=== PATIENT | female | born 1980 | race Caucasian/White ===

== ENCOUNTER 2016-08-09 08:23 | Emergency (ER) | payer BC ==
[2016-08-09 08:40] VITALS: BP 127/85
--- NOTE | 2016-08-09 08:58 | UC ---
Throat Pain/Nasal Vasiliy HPI - HPI Summary HPI Summary: complaint of cough and nasal congestion that started 1 week ago for the last 2 days her throat has been painful coughing up purulent fluid since yesterday bilateral ear pain pressure in her forehead and behind her eyes intermittent fever in the evenings of 100-102 N/V/D intermittent for the last 5 days taking tylenol and advil for pain with minimal relief - History of Current Complaint Chief Complaint: UCRespiratory Stated Complaint: SORE THROAT Time Seen by Provider: 08/09/16 08:46 Hx Obtained From: Patient Hx Last Menstrual Period: 07/14/16 - Allergies/Home Medications Allergies/Adverse Reactions: Allergies Allergy/AdvReac Type Severity Reaction Status Date / Time Aspirin Allergy Severe anaphylaxis Verified 11/30/15 13:36 Cephalosporins Allergy Severe anaphylaxis Verified 11/30/15 13:36 Iodinated Contrast Media Allergy Severe ANAPHYLAXIS Verified 11/30/15 13:36 [CONTRAST DYE] Iodine Allergy Severe THROAT Verified 11/30/15 13:36 SWELLING Latex Allergy Severe anaphylaxis Verified 11/30/15 13:36 Midazolam [From Versed] Allergy Severe SUICIDAL Verified 11/30/15 13:36 Morphine Allergy Severe anaphylaxis Verified 11/30/15 13:36 Penicillins [PCN] Allergy Severe anaphylaxis Verified 11/30/15 13:36 Promethazine [From Phenergan] Allergy Severe hallucintio Verified 11/30/15 13:36 ns Sulfa Drugs Allergy Severe anaphylaxis Verified 11/30/15 13:36 Tetracycline Allergy Severe anaphylaxis Verified 11/30/15 13:36 Ibuprofen Allergy Intermediate Rash Verified 11/30/15 13:36 Gluten Meal Allergy Rash Verified 11/30/15 13:36 PMH/Surg Hx/FS Hx/Imm Hx Previously Healthy: Yes Endocrine History Of: Reports: Thyroid Disease - 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." Denies: Diabetes, Hyperthyroidism, Hypothyroidism, Dyslipidemia Cardiovascular History Of: Reports: Hypertension - WITH Denies: Cardiac Disorders, Pacemaker/ICD, Myocardial Infarction, Congestive Heart Failure, Atrial Fibrillation, Deep Vein Thrombosis, Bleeding Disorders Respiratory History Of: Reports: Asthma - A CHILD Denies: COPD, Bronchitis, Pneumonia, Pulmonary Embolism GI/ History Of: Denies: Gastroesophageal Reflux, Ulcer, Gastrointestinal Bleed, Gall Bladder Disease, Kidney Stones, Diverticulitis, Renal Disease, Urosepsis Neurological History Of: Denies: TIA, CVA, Dementia, Seizures, Migraine Psychological History Of: Denies: Anxiety, Depression, Bipolar Disorder, Schizophrenia, Post Traumatic Stress Disorder Cancer History Of: Denies: Lung Cancer, Colorectal Cancer, Breast Cancer, Prostate Cancer, Cervical Cancer Other History Of: Negative For: HIV, Hepatitis B, Hepatitis C - Surgical History Surgical History: Yes Surgery Procedure, Year, and Place: RUPTURED RIGHT ACHILLES TENDON REPAIR AT AGE 16, CHOLECYSTECTOMY, PARTIAL LIVER LOBECTOMY 2002, MULTIPLE LAPAROSCOPIC exploratory. appendectomy. tonsillectomy. ear tubes as child - Family History Known Family History: Positive: Cardiac Disease, Hypertension, Diabetes - Social History Occupation: Employed Full-time Lives: With Family Alcohol Use: Occasionally Substance Use Type: None Smoking Status (MU): Never Smoked Tobacco - Immunization History Most Recent Tetanus Shot: does not recall Review of Systems Constitutional: Fever Skin: Negative Eyes: Negative ENT: Sore Throat, Ear Ache, Nasal Discharge Respiratory: Cough Cardiovascular: Negative Gastrointestinal: Negative Genitourinary: Negative Motor: Negative Neurovascular: Negative Musculoskeletal: Negative Neurological: Headache Psychological: Negative All Other Systems Reviewed And Are Negative: Yes Physical Exam Triage Information Reviewed: Yes Appearance: Well-Nourished, Pain Distress Vital Signs: Initial Vital Signs Temp 97.7 F 08/09/16 08:32 Pulse 116 08/09/16 08:32 Resp 16 08/09/16 08:32 BP 127/85 08/09/16 08:32 Pulse Ox 99 08/09/16 08:32 Vital Signs Reviewed: Yes Eyes: Positive: Conjunctiva Clear ENT: Positive: Pharyngeal erythema, Nasal congestion, Nasal drainage, TMs normal Dental: Positive: Cervical Lymphadenopathy Respiratory: Positive: Lungs clear, Normal breath sounds, No respiratory distress Cardiovascular: Positive: RRR, No Murmur, Pulses Normal Abdomen Description: Positive: Nontender, Soft Bowel Sounds: Positive: Present Musculoskeletal: Positive: No Edema Neurological: Positive: Alert Psychological Exam: Normal Skin Exam: Normal Throat Pain/Nasal Course/Dx - Differential Dx/Diagnosis Provider Diagnoses: strep pharyngitis Discharge - Discharge Plan Condition: Stable Disposition: HOME Prescriptions: Clarithromycin TAB* [Biaxin 250 MG TAB*] 250 mg PO BID #20 tab Guaifenesin-Codeine [Cheratussin AC] 10 syp PO TID #180 syp MDD 30 Patient Education Materials: Strep Throat (ED) Referrals: No Primary Care Phys,NOPCP [Primary Care Provider] - [facility] [Outside] Additional Instructions: STREPTOCOCCAL PHARYNGITIS (Strep Throat) What is Strep Throat? Strep throat is an infection of the throat and/or tonsils caused by Streptococcus bacteria. Strep throat is contagious and can be passed from one person to another through coughing and sneezing. Infections that are caused by bacteria require antibiotics to be cured. You remain contagious until you have taken antibiotics for at least 24 hours. Symptoms Might Include: Pain in the throat area Swelling of the glands in the neck Pain with swallowing Fever Fatigue Ear pain White spots on your tonsils (caused by pus) Treatment Recommendations: An antibiotic may have been prescribed. The antibiotic should be taken until it is completely gone, even if you feel better. If you stop the antibiotic early , you may not cure the infection completely. Gargle with warm saltwater (place 1 tsp. of salt in a large glass of warm water ) every 3 to 4 hours. Take acetaminophen (Tylenol, Tempra) for pain and fever. Drink lots of fluids. Do not smoke. Use throat lozenges (Cepostat, [place], etc.) or suck on hard candy for temporary relief of the pain of swallowing. Dispose of used tissues immediately. Cover your mouth when coughing or sneezing. Wash hands frequently. Call Your Doctor or Return Here IF: Your symptoms do not improve within 2 days or you become worse. You have a fever over 101.0 F orally. You are unable to swallow liquids or saliva. You are drooling. You develop trouble breathing. You develop a rash. You develop a stiff neck. You develop pain in your chest. You develop any symptoms that are new or that concern you our blood pressure is pre-hypertensive reading. Please contact your primary care provider within 1 day -4 weeks for further evaluation
== END 2016-08-09 09:19 | disposition home or self-care (01) ==
LOC: UCEAST 08:23
DX: J02.0 Streptococcal pharyngitis (principal); E04.9 Nontoxic goiter, unspecified; Z90.49 Acquired absence of other specified parts of digestive tract; Z88.5 Allergy status to narcotic agent; Z88.0 Allergy status to penicillin; Z88.2 Allergy status to sulfonamides; Z88.6 Allergy status to analgesic agent; Z88.1 Allergy status to other antibiotic agents; Z91.041 Radiographic dye allergy status
CPT/HCPCS: 87651; 99212; G0463

== ENCOUNTER 2017-04-11 08:22 | Emergency (ER) | payer BC ==
[2017-04-11 08:32] VITALS: BP 147/102
--- NOTE | 2017-04-11 08:37 | UC ---
Respiratory Complaint HPI - HPI Summary HPI Summary: 36 year old female with multiple abdominal surgeries presents with complains of severe abdominal pain. I will send her to the er. - History of Current Complaint Chief Complaint: UCAbdominalPain Stated Complaint: VOMITING, COUGH Time Seen by Provider: 04/11/17 08:37 Hx Obtained From: Patient Hx Last Menstrual Period: 04/11/17 Onset/Duration: Sudden Onset Severity Initially: Moderate Severity Currently: Moderate Pain Scale Used: 0-10 Numeric - 7 Associated Signs And Symptoms: Positive: Negative - Allergies/Home Medications Allergies/Adverse Reactions: Allergies Allergy/AdvReac Type Severity Reaction Status Date / Time Aspirin Allergy Severe anaphylaxis Verified 04/11/17 08:33 Cephalosporins Allergy Severe anaphylaxis Verified 04/11/17 08:33 Iodinated Contrast Media Allergy Severe ANAPHYLAXIS Verified 04/11/17 08:33 [CONTRAST DYE] Iodine Allergy Severe THROAT Verified 04/11/17 08:33 SWELLING Latex Allergy Severe anaphylaxis Verified 04/11/17 08:33 Midazolam [From Versed] Allergy Severe SUICIDAL Verified 04/11/17 08:33 Morphine Allergy Severe anaphylaxis Verified 04/11/17 08:33 Penicillins [PCN] Allergy Severe anaphylaxis Verified 04/11/17 08:33 Promethazine [From Phenergan] Allergy Severe hallucintio Verified 04/11/17 08:33 ns Sulfa Drugs Allergy Severe anaphylaxis Verified 04/11/17 08:33 Tetracycline Allergy Severe anaphylaxis Verified 04/11/17 08:33 Gluten Meal Allergy Rash Verified 04/11/17 08:33 Naproxen [From Aleve] Allergy Rash Verified 04/11/17 08:33 PMH/Surg Hx/FS Hx/Imm Hx Previously Healthy: Yes Other History Of: Negative For: HIV, Hepatitis B, Hepatitis C - Surgical History Surgical History: Yes Surgery Procedure, Year, and Place: RUPTURED RIGHT ACHILLES TENDON REPAIR AT AGE 16, CHOLECYSTECTOMY, PARTIAL LIVER LOBECTOMY 2002, MULTIPLE LAPAROSCOPIC exploratory. appendectomy. tonsillectomy. ear tubes as child - Family History Known Family History: Positive: Cardiac Disease, Hypertension, Diabetes - Social History Alcohol Use: Weekly Alcohol Amount: 2-3 drinks weekly Substance Use Type: None Smoking Status (MU): Never Smoked Tobacco - Immunization History Most Recent Influenza Vaccination: NOT UTD Most Recent Tetanus Shot: does not recall Review of Systems Constitutional: Negative Skin: Negative Eyes: Negative ENT: Negative Respiratory: Negative Cardiovascular: Negative Gastrointestinal: Abdominal Pain, Nausea Genitourinary: Negative Motor: Negative Neurovascular: Negative Musculoskeletal: Negative Neurological: Negative Psychological: Negative All Other Systems Reviewed And Are Negative: Yes Physical Exam Triage Information Reviewed: Yes Vital Signs: Initial Vital Signs Temp 35.6 C 04/11/17 08:26 Pulse 126 04/11/17 08:26 Resp 18 04/11/17 08:26 BP 147/102 04/11/17 08:26 Pulse Ox 99 04/11/17 08:26 Vital Signs Reviewed: Yes Eye Exam: Normal ENT Exam: Normal Dental Exam: Normal Neck exam: Normal Neck: Positive: 1 Respiratory Exam: Normal Cardiovascular Exam: Normal Abdomen Description: Positive: Other: - diffuse abdominal pain Musculoskeletal Exam: Normal Neurological Exam: Normal Psychological Exam: Normal Skin Exam: Normal UC Diagnostic Evaluation - Laboratory O2 Sat by Pulse Oximetry: 99 Respiratory Course/Dx - Differential Dx/Diagnosis Provider Diagnoses: diffuse abdominal pain Discharge - Discharge Plan Condition: Stable Disposition: OTHER Discharge Disposition Comment: patient suggested to go to the er Patient Education Materials: Acute Abdominal Pain (ED) Referrals: No Primary Care Phys,NOPCP [Primary Care Provider] - Additional Instructions: patient suggested to go to the er for severe abdominal pain/vomiting
== END 2017-04-11 08:45 ==
LOC: UCEAST 08:22
DX: R10.84 Generalized abdominal pain (principal); R11.10 Vomiting, unspecified; R05 Cough; Z88.6 Allergy status to analgesic agent; Z88.1 Allergy status to other antibiotic agents; Z88.5 Allergy status to narcotic agent; Z88.0 Allergy status to penicillin; Z88.2 Allergy status to sulfonamides; Z88.8 Allergy status to other drugs, medicaments and biological substances; Z91.041 Radiographic dye allergy status; Z91.040 Latex allergy status; Z90.49 Acquired absence of other specified parts of digestive tract; Z98.890 Other specified postprocedural states
CPT/HCPCS: 99212; G0463

== ENCOUNTER 2017-04-11 09:18 | Emergency (ER) | payer BC ==
[2017-04-11] MEDS ORDERED: Albuterol/Ipratropium NEB.SOL* Albuterol 2.5 MG/Ipratropium 0.5 MG 3 ML INH ONE ×2 (09:55→10:45)
[2017-04-11] MEDS ORDERED: Ondansetron INJ* 2 MG/ML VIAL IV ONE ×2 (09:58→12:49)
[2017-04-11] MEDS ORDERED: NS 0.9% 1000 ML* 2,000 ML IV ONE (09:58)
--- NOTE | 2017-04-11 10:04 | ED ---
Nausea/Vomiting/Diarrhea HPI - HPI Summary HPI Summary: 36 female presents to ED from [facility] with complaints of nausea, vomiting, fever, cough and trouble breathing. Patient states she has been vomiting multiple times a day for the past couple of days, began Wednesday04/07/17 and has been ongoing since. Has been drinking fluids and trying to stay hydrated. States she has been having body aches, and feels itchy and weak. Patient denies blood in vomit and stool. Denies urinary and genitalia symptoms. States has some diffuse intermittent upper epigastric and left abdominal pain that is sharp and burning. States she has been vomiting profusely and does not know if she maybe aspirated as she is now experiencing a cough, wheezing and having SOB. Does have history of aspiration pneumonia. States fever was 103 yesterday, was able to take tylenol which helped her. Is currently nauseous. No other known medical problems, no medications. Currently menstruating. Did have cholecystectomy and appendectomy in the past. Also had some of liver removed after complications from cholecystectomy. Has not traveled, denies cigarette use, no OCP. No recent take out food. - History of Current Complaint Chief Complaint: EDAbdPain Stated Complaint: VOMITTING/ABD PAIN Time Seen by Provider: 04/11/17 09:27 Hx Obtained From: Patient Hx Last Menstrual Period: 04/11/17 ?: No Timing: Intermittent Episodes Lasting: Severity Initially: Mild Severity Currently: Moderate Pain Intensity: 8 Pain Scale Used: 0-10 Numeric Location: Discrete At: LUQ, Epigastric Character: Sharp, Burning, Cramping Aggravating Factor(s): Food Alleviating Factor(s): Nothing Nausea/Vomiting Presence: Nauseated, Vomiting Vomiting Frequency: Every 3-4 hours Nausea/Vomiting Duration: 3-7 days - 5 Vomiting Characteristics: Retching, Bilious Diarrhea Presence: Yes Diarrhea Frequency: Daily Diarrhea Duration: 3-7 days Diarrhea Characteristics: Watery - Allergies/Home Medications Allergies/Adverse Reactions: Allergies Allergy/AdvReac Type Severity Reaction Status Date / Time Aspirin Allergy Severe anaphylaxis Verified 04/11/17 08:33 Cephalosporins Allergy Severe anaphylaxis Verified 04/11/17 08:33 Iodinated Contrast Media Allergy Severe ANAPHYLAXIS Verified 04/11/17 08:33 [CONTRAST DYE] Iodine Allergy Severe THROAT Verified 04/11/17 08:33 SWELLING Latex Allergy Severe anaphylaxis Verified 04/11/17 08:33 Midazolam [From Versed] Allergy Severe SUICIDAL Verified 04/11/17 08:33 Morphine Allergy Severe anaphylaxis Verified 04/11/17 08:33 Penicillins [PCN] Allergy Severe anaphylaxis Verified 04/11/17 08:33 Promethazine [From Phenergan] Allergy Severe hallucintio Verified 04/11/17 08:33 ns Sulfa Drugs Allergy Severe anaphylaxis Verified 04/11/17 08:33 Tetracycline Allergy Severe anaphylaxis Verified 04/11/17 08:33 Gluten Meal Allergy Rash Verified 04/11/17 08:33 Naproxen [From Aleve] Allergy Rash Verified 04/11/17 08:33 PMH/Surg Hx/FS Hx/Imm Hx Endocrine/Hematology History: Reports: Hx Thyroid Disease - 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." Denies: Hx Diabetes Cardiovascular History: Reports: Hx Hypertension - WITH Denies: Hx Congestive Heart Failure, Hx Deep Vein Thrombosis, Hx Myocardial Infarction, Hx Pacemaker/ICD Respiratory History: Reports: Hx Asthma - A CHILD Denies: Hx Chronic Obstructive Pulmonary Disease (COPD), Hx Lung Cancer, Hx Pneumonia, Hx Pulmonary Embolism GI History: Denies: Hx Gall Bladder Disease, Hx Gastrointestinal Bleed, Hx Ulcer, Hx Urosepsis History: Reports: Other Problems/Disorders - hx Hep A & Liver Problems Denies: Hx Kidney Stones, Hx Renal Disease Neurological History: Denies: Hx Dementia, Hx Migraine, Hx Seizures, Hx Transient Ischemic Attacks (TIA) Psychiatric History: Denies: Hx Anxiety, Hx Depression, Hx Schizophrenia, Hx Bipolar Disorder - Surgical History Surgery Procedure, Year, and Place: RUPTURED RIGHT ACHILLES TENDON REPAIR AT AGE 16, CHOLECYSTECTOMY, PARTIAL LIVER LOBECTOMY 2002, MULTIPLE LAPAROSCOPIC exploratory. appendectomy. tonsillectomy. 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, Hx Shingles - in past year, History Other Infectious Disease - "RAT BITE FEVER" Denies: Hx Clostridium Difficile, Hx Human Immunodeficiency Virus (HIV), Hx of Known/Suspected MRSA, Hx Tuberculosis, Hx Known/Suspected VRE, Hx Known/ Suspected VRSA, Traveled Outside the [place] in Last 30 Days - Family History Known Family History: Positive: Cardiac Disease, Hypertension, Diabetes - Social History Alcohol Use: Weekly Alcohol Amount: 3 drinks weekly Substance Use Type: Reports: None Smoking Status (MU): Former Smoker Review of Systems Positive: Fever, Chills, Fatigue Eyes: Negative Positive: Sore Throat - from vomiting Positive: Chest Pain - "from vomiting, burning acid reflux like" Positive: Shortness Of Breath, Cough Positive: Abdominal Pain, Vomiting, Diarrhea, Nausea Genitourinary: Negative Skin: Other - "feels itchy" Positive: Weakness All Other Systems Reviewed And Are Negative: Yes Physical Exam Triage Information Reviewed: Yes Vital Signs On Initial Exam: Initial Vitals Temp Pulse Resp BP Pulse Ox 97.1 F 118 17 141/92 98 04/11/17 09:19 04/11/17 09:19 04/11/17 09:19 04/11/17 09:19 04/11/17 09:19 tachycardia noted Vital Signs Reviewed: Yes Appearance: Positive: Well-Appearing, No Pain Distress, Well-Nourished Skin: Positive: Warm, Skin Color Reflects Adequate Perfusion, Dry. Negative: Cold, Numb, Cyanosis @, Pale, Erythema @ Head/Face: Positive: Normal Head/Face Inspection. Negative: Scalp Eyes: Positive: EOMI, SONAM, Conjunctiva Clear Neck: Positive: Supple, Nontender, No Lymphadenopathy Respiratory/Lung Sounds: Positive: Clear to Auscultation, Breath Sounds Present , Rhonchi - b/l, Wheezes - diffuse. Negative: Stridor, Tracheal Deviation, Unable to speak in full sentences, Fatigue Cardiovascular: Positive: Normal, RRR, Pulses are Symmetrical in both Upper and Lower Extremities, Tachycardia Abdomen Description: Positive: No Organomegaly, Soft, Other: - pain with palpation diffusely RLQ and LUQ epigastric area. Negative: Bruit, CVA Tenderness (R), CVA Tenderness (L), Distended, Guarding, McBurney's Point Tenderness, Peritoneal Signs, Pulsatile Mass Bowel Sounds: Positive: Present, Hypoactive Pelvic Exam: Positive: other - deferred Musculoskeletal: Positive: Normal, Strength/ROM Intact. Negative: Pain @ Neurological: Positive: Normal, Sensory/Motor Intact, Alert, Oriented to Person Place, Time, CN Intact II-III, Reflexes Intact, NV Bundle Intact Distally, Normal Gait - Conway Coma Scale Coma Scale Total: 15 Diagnostics - Vital Signs Vital Signs Temp Pulse Resp BP Pulse Ox 04/11/17 09:47 116 98 04/11/17 09:19 97.1 F 118 17 141/92 98 - Laboratory Result Diagrams: 04/11/17 10:15 04/11/17 10:15 Lab Statement: Any lab studies that have been ordered have been reviewed, and results considered in the medical decision making process. - Radiology chest Xray Interpretation: No Acute Changes - No radiographic evidence of acute cardiopulmonary disease. Radiology Interpretation Completed By: Radiologist - CT abd/pelvis CT Interpretation: No Acute Changes - 1. There are top normal loops of proximal small bowel exhibiting air-fluid levels which could be seen in the setting of partial small bowel obstruction. Evaluation of the gastrointestinal tract is limited by the absence of oral contrast. 2. A 3.6 cm fluid density structure in the left adnexa is most consistent with a dominant follicle in a woman of this age. The right ovary is mildly enlarged as well. If the patient is experiencing any gynecologic specific symptoms superior characterization can be made with transvaginal pelvic ultrasound. 3. There are additional chronic and postsurgical changes described in the body the report. CT Interpretation Completed By: Radiologist - and myself and Dr Taylor - EKG EKG Cardiac Rate: NL EKG Rhythm: Sinus Tachycardia ST Segment: Normal Ectopy: None EKG Interpretation: sinus tachycardia at 113, no stemi EKG Comparison: No Significant Change Re-Evaluation - Re-Evaluation First Eval Re-Evaluation Time: 12:00 Change: Improved - had some relief with zofran and toradol Second Eval Re-Evaluation Time: 15:00 Change: Improved - feeling better had consult with Vicky Ding and hospitalist service. Decided to be d/c updated on all labs and imaging results Naus/Vom/Diarrhea Course/Dx - Course Course Of Treatment: chest xray obtained to rule out pneumonia, given zofran and fluids for nasuea and dehydration. labs obtained and had significantly increased liver enzymes. hepatitis panel was obtained penidng results. Ct abd/ pelvis obtained without contrast due to patient's previous allergies to contrast , possible slight/partial bowel obstruction not very impressive, patient still moving bowels. Spoke with Dr Taylor and Dr Steen about results who stated this was a non surgical finding and close follow up would be sufficient unless worsening signs and symptoms, no further imaging required at this time. Due to liver enzymes, elevated Hgb and elevated platelets hospitalist Dr Pearson was consulted. Patient was consulted by hospitalist service and decided that going home with outpatient treatment was the decision. To send home on levofloxacin, zofran and oxycodone to help symptoms. Levaquin due to patients concern for aspiration pneumonia, with history and PE findings of wheezing/rhonci on exam. Given duoneb x2 for wheezing had relief. influenza and mono obtained and negative. vitals stable other than slight tachycardia that improved. Given fluids. EKG obtained and normal. Will be treated outpatient pending hepatitis panel and close follow up with repeat labs with PCP. Appointment made at hospitalist outpatient office for this week. Aware of worsening signs and symptoms. Patient is very aware as her significant PMHX. - Differential Dx/Diagnosis Differential Diagnoses - Female: Other - gastroenteritis, abdominal pain, nausea , vomiting, hepatitis, pneumonia, bronchitis, viral illness Provider Diagnoses: elevated liver enzymes, nausea/vomiting/diarrhea, wheezing, upper abdominal pain Condition At Discharge: Improved - Physician Notification/Consults Discussed Case/Management/Disposition Of Patient With: Dr Taylor, Dr Steen, Dr Pearson, Vicky Ding Time Discussed With Above Provider: 13:00 Instructed by Provider To: Have Pt Call For Appt. - appt set up for outpatient follow up and repeat labs Discharge - Discharge Plan Condition: Stable Disposition: HOME Prescriptions: Levofloxacin TAB* [Levaquin 500 Tab*] 500 mg PO DAILY #20 tab Ondansetron TAB* [Zofran 4 MG Tab*] 4 mg PO Q6H PRN #15 tab PRN Reason: Nausea oxyCODONE TAB* [Roxycodone TAB 5 mg*] 5 mg PO Q6H PRN #14 tab MDD 2 PRN Reason: Pain Patient Education Materials: Levofloxacin (By mouth), Acute Bronchitis (ED), Abdominal Pain (ED) Referrals: No Primary Care Phys,NOPCP [Primary Care Provider] - Additional Instructions: Take prescribed medication as directed. Increase fluid intake. Rest. Any new or worsening symptoms please return as thoroughly discussed. Follow up next week with outpatient PCP you have an appointment already set up with.
[2017-04-11 10:35] LABS: ABS Basophils 0.2 10^3/ul (0-0.2); ABS Eosinophils 0.8 10^3/ul (0-0.6); ABS Lymphocytes 2.4 10^3/ul (1.0-4.8); ABS Monocytes 1.2 10^3/ul (0-0.8); ABS Neutrophils 9.6 10^3/ul (1.5-7.7); ABS Nucleated RBC 0 10^3/ul; Eosinophil % 5.6 % (0-6); Hematocrit 47 % (35-47); Hemoglobin 16.6 g/dl (12.0-16.0); Mean Corpuscular HGB Conc 35 g/dl (31-36); Mean Corpuscular Hemoglobin 31 pg (27-31); Mean Corpuscular Volume 89 fL (80-97); Mean Platelet Volume 7 um3 (7.4-10.4); Nucleated Red Blood Cells % 0; Platelet Count 467 10^3/ul (150-450); Red Blood Count 5.31 10^6/ul (4.0-5.4); Red Cell Distribution Width 13 % (10.5-15); White Blood Count 14.1 10^3/ul (3.5-10.8)
[2017-04-11] MEDS ORDERED: Ketorolac INJ* 30 MG/ML 1 ML VIAL IV PUSH ONE (10:38)
[2017-04-11 10:39] LABS: Urine Appearance Clear; Urine Blood 2+ (Negative); Urine Color Yellow; Urine Ketones Negative (Negative); Urine Protein Negative (Negative); Urine Specific Gravity 1.005 (1.010-1.030); Urine Urobilinogen Negative (Negative)
[2017-04-11 10:59] LABS: EGFR Non-African American 105.6 (>60)
--- NOTE | 2017-04-11 11:08 | RAD ---
INDICATION: Vomiting and abdominal pain COMPARISON: Similar chest x-ray dated April 30, 2010 TECHNIQUE: PA and lateral views of the chest were obtained. FINDINGS: The heart and mediastinum are normal in size and contour. The lungs are grossly clear. There is no evidence of large pleural effusion. Visualized bones are normal for the patient's age. There is no radiographic evidence of free air beneath the diaphragm IMPRESSION: No radiographic evidence of acute cardiopulmonary disease.
--- NOTE | 2017-04-11 12:02 | RAD ---
CLINICAL HISTORY: Abdominal pain, nausea, vomiting and "having full sensation in abdomen after she eats". Relevant surgical history includes cholecystectomy, partial liver lobectomy, appendectomy and multiple laparoscopic exploratory surgeries. COMPARISON: None TECHNIQUE: Noncontrast CT examination of the abdomen and pelvis from the lung bases through the initial tuberosities. FINDINGS: VISUALIZED LUNG BASES: The visualized lung bases are grossly clear. There is no pleural effusion. ABDOMEN AND PELVIS: Evaluation of the solid organs and vasculature is limited without intravenous contrast. The liver, spleen and pancreas are grossly normal in appearance. The gallbladder is surgically absent with clips in the gallbladder fossa. At the medial limb of the right adrenal gland there is a 1.5 cm low-attenuation nodule. At the apex of the left adrenal gland there is a 2.1 cm low-attenuation nodule. The Hounsfield units measure less than 20 which is consistent with benign adenomas on a noncontrast CT examination. The kidneys are normal in appearance without focal mass, calcification or signs of hydronephrosis. Evaluation of the gastrointestinal tract is limited without oral contrast. At the left upper quadrant there are mildly dilated loops of small bowel measuring up to 2.5 cm in diameter exhibiting air-fluid levels (axial image 45 and coronal image 48 for example). More distally the small bowel is mostly decompressed. Gas and stool is seen throughout the length of the colon. Consistent with the patient's surgical history, there are surgical clips at the base of the cecum and the appendix is not visualized. There is no gross retroperitoneal or mesenteric lymphadenopathy. At the left adnexa there is a fluid density structure measuring 3.6 cm most consistent with a dominant follicle in a woman of this age. In the right adnexa there is a 4.2 x 3.5 cm mixed attenuation structure including a focus of calcium most consistent with the right ovary. The presence of calcium just but does not diagnosis possible dermoid. A tampon is incidentally noted to be present in the patient's vagina. The abdominal aorta and iliac arteries are normal in course and diameter. Degenerative changes include multilevel loss of intervertebral disc height involving the lower thoracic and lumbar spine.There are no sinister bone lesions. IMPRESSION: 1. There are top normal loops of proximal small bowel exhibiting air-fluid levels which could be seen in the setting of partial small bowel obstruction. Evaluation of the gastrointestinal tract is limited by the absence of oral contrast. 2. A 3.6 cm fluid density structure in the left adnexa is most consistent with a dominant follicle in a woman of this age. The right ovary is mildly enlarged as well. If the patient is experiencing any gynecologic specific symptoms superior characterization can be made with transvaginal pelvic ultrasound. 3. There are additional chronic and postsurgical changes described in the body the report.
[2017-04-11] MEDS ORDERED: NS 0.9% 1000 ML* 1,000 ML IV SCH (13:30)
[2017-04-11 16:49] VITALS: BP 128/87
--- NOTE | 2017-04-12 02:36 | CONS ---
HOSPITAL MEDICINE CONSULTATION REPORT: DATE OF ADMISSION: 04/11/17. PRIMARY CARE PHYSICIAN: None. CONSULTING PHYSICIAN: Dr. Lara Pearson (dictation provided by Vicky Ding NP ) REASON FOR CONSULTATION: Question regarding the need for admission. HISTORY OF PRESENT ILLNESS: Ms. 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 Ms. William states that she began to feel unwell on Wednesday. She has been vomiting repeatedly. She has had diarrhea, she feels like she has been in the bathroom almost constantly. Her diarrhea resolved as of yesterday morning. She has continued to feel nauseous, has had vomited at times. These symptoms were not particularly severe for her given her history. She would rate her previous episodes as 10/10 and stated this episode was about 3/10. This morning when she woke up she felt very wheezy and was concerned perhaps that she had aspirated during these bouts of vomiting. She does have a history of aspiration pneumonia during her multiple previous illnesses. She therefore presented to [facility] for evaluation. She also has been having over the past 24 hours increased pruritus and this symptom in the past for her has been associated with hepatitis. In the emergency room, Ms. William had labs that did confirm that her LFTs were elevated to 304 for AST, ALT 557, alk phos 139. She had an elevated white blood cell count of 14.1. Her total bilirubin was normal. Urine showed no evidence of infection and flu swab was negative. She had a chest x-ray, which showed no acute cardiopulmonary disease and she had a noncontrast abdomen and pelvis CT, which confirmed hepatomegaly and top normal loops of proximal small bowel exhibiting air fluids level, which could be seen in the setting of partial small bowel obstruction though there was not any oral contrast. PAST MEDICAL HISTORY: 1. History of GI ulcer at age 15. 2. History of cholecystectomy. 3. History of sphincter of Oddi malformation with removal in 2001. 4. Non-alcholic cirrhosis. 5. History of aspiration pneumonia. 6. Appendectomy. 7. History of hepatitis in 2009 after eating bad shellfish. 8. History of asthma as a child. 9. Thyroid goiter. MEDICATIONS: None. ALLERGIES: To ASPIRIN, CEPHALOSPORINS, IODINATED CONTRAST MEDIA, IODINE, LATEX , MIDAZOLAM, MORPHINE, PENICILLIN, PROMETHAZINE, SULFA DRUGS, TETRACYCLINE, GLUTEN MEALS and NAPROXEN. SOCIAL HISTORY: No report of alcohol, tobacco or drug use. The patient drinks about one to two drinks per week on the weekends only. She reports that her , Tracie will be the healthcare proxy. REVIEW OF SYSTEMS: A 14-point review of system was completed with Ms. William and all those not mentioned above were negative. PHYSICAL EXAMINATION: Vital Signs: Temperature 97.1, pulse rate 93, respiratory rate 17, O2 saturation 97% on room air, blood pressure 111/78. General: Ms. William is sitting up in the bed. She appears in no acute distress at all. She is not nauseous. She is not vomiting. Neuro: She is alert. She is oriented x3. She moves all extremities equally. There is no facial asymmetry or focal weakness. Extraocular movements are intact. Heart: S1, S2. No murmur, rub or gallop and regular. Lungs: Lungs have rhonchi in the right base with expiratory wheeze. The abdomen is soft. There is tenderness to palpation in the left upper quadrant. Extremities: No cyanosis. No edema. Skin: Intact. LABORATORY DATA/DIAGNOSTIC STUDIES: WBC 14.1, hemoglobin 16.6, hematocrit less than 47, platelet count 467. Sodium 135, potassium 3.5, chloride 102, serum bicarbonate 26, BUN 9, creatinine 0.64, glucose 123, AST 304, ALT 557, alk phos 139, CRP 10.10. Urine shows no evidence of infection. [place] screen and flu swabs are negative. The full abdomen and pelvis CT report impression is read as follows: There are top normal loops of proximal small bowel exhibiting air-fluid levels which could be seen in the setting of partial small bowel obstruction. Evaluation of the gastrointestinal tract is limited by the absence of oral contrast. A 3.6 cm fluid density structure in the left adnexa is most consistent with a dominant follicle in a woman of this age. The right ovary is mildly enlarged as well. If the patient is experiencing any gynecological specific symptoms, further characterization can be made with transvaginal pelvic ultrasound. There are additional chronic and postsurgical changes described in the body of the report. Hepatomegaly. EKG shows a sinus tachycardia with a heart rate of 110. Chest x-ray shows no acute cardiopulmonary process. ASSESSMENT: Ms. William is a 36-year-old female with a past medical history complicated by multiple GI issues including gastric ulcer at age 15, sphincter of Oddi dysfunction requiring removal in 2001 in [place], cholecystectomy, appendectomy, nonalcoholic cirrhosis, and an episode of hepatitis after eating shellfish in 2009, who presents today at the hospital with similar episodes of her previous episodes of hepatitis with nausea, vomiting, diarrhea and pruritus. The patient felt that these symptoms were tolerable at home, but that she became concerned when she felt some wheezing and therefore presented to [facility]. Here today, she has a normal chest x-ray, but she does have an elevated white blood cell count to 14.1. I think this is likely multifactorial related to her GI process as well as a possible pneumonia as on exam I do auscultate rhonchi in the right base. The patient has elevated LFTs consistent with hepatitis as during her described previous episodes. Per her report, the nausea, vomiting and diarrhea are decreasing. She does have pruritus, which she associates with the hepatitis. She has no known ingestions other than some cauliflower that she reported tasting odd several days before the onset of these symptoms. I question whether gastrointestinal infection has precipitated this worsening of her non-alcoholic cirrhosis. The patient states that these symptoms are manageable and would be amenable to going home with nausea medication and pain medication for the evenings when sometimes it is difficult for her to sleep. Her real concern, and the cause of presentation was wheezing. I do appreciate rhonchi in the right base and based on her overall presentation (including her elevated WBC) I think it would be appropriate to start her on antibiotic treatment for possible aspiration pneumonia with Levaquin and clindamycin. The patient does not have a primary care physician; however, her is a patient at [facility] and the patient is interested in becoming a patient there as well. I left a message with our administrative plastic jig and fixture builder about scheduling the patient for an appointment next week at [facility]. The patient will also follow up on this herself. She is a savvy patient and excellent historian and I feel that she is medically stable to discharge to home to follow up with a new primary care physician regarding ongoing management of her hepatitis. I also strongly encouraged her and she states willingness to return to the hospital should her symptoms worsen at all or should she have other concerns. Ms. William is medically stable for discharge to home to follow up with a new primary care physician this week at [facility] with recommendations for repeat labs including LFTs and follow up of possible pneumonia. TIME SPENT: Approximately 60 minutes was spent on the consultation of this patient, more than half time spent with the patient at the bedside reviewing the events, leading up to this hospitalization, performing the physical examination, and reviewing my plan of care. VICKY DING NP [id number]/CPS #: [id number] VASU
== END 2017-04-11 16:10 | disposition home or self-care (01) ==
LOC: ED 09:18
DX: R94.5 Abnormal results of liver function studies (principal); R11.2 Nausea with vomiting, unspecified; R06.2 Wheezing; R10.10 Upper abdominal pain, unspecified; R50.9 Fever, unspecified; R53.83 Other fatigue; J02.9 Acute pharyngitis, unspecified; R07.9 Chest pain, unspecified; Z87.891 Personal history of nicotine dependence; R19.7 Diarrhea, unspecified
CPT/HCPCS: 36415; 71020; 74176; 80053; 80074; 81003; 81015; 82150; 83605; 83690; 83735; 84702; 85025; 86140; 86308; 87040; 87086; 87502; 93005; 94640; 94760; 96374; 96375; 99283; A9270-GY; J1885; J2405

== ENCOUNTER 2017-04-15 16:43 | Emergency (ER) | payer BC ==
--- OUTSIDE RECORDS SUMMARY | 2017-04-15 16:59 | XMS REPORT ---
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 Unavailable Santos Qeuzada MD Primary Care Physician Unavailable Payers Type Date Identification Numbers Payment Provider Subscriber Commercial Policy Number: [id number] [employer] William PayID: [id number] [address] [address] [place] [address] Problems Description No Information Social History Type Date Description Comments Smoking Nonsmoker Allergies, Adverse Reactions, Alerts Date Description Reaction Status Severity Comments 04/14/2017 Penicillins Anaphylaxis active 04/14/2017 Cephalosporins tachy/hives active 04/14/2017 Sulfa Anaphylaxis active 04/14/2017 Aspirin Anaphylaxis active 04/14/2017 Morphine drops BP/throat active swells 04/14/2017 Promethazine hallucinations/brock active icidal 04/14/2017 Iodine Anaphylaxis active anaphalactic IV-topical looks liike oneill 04/14/2017 Latex Anaphylaxis active 04/14/2017 Tree Nuts Anaphylaxis active 04/14/2017 Bees Anaphylaxis active wasps especially 04/14/2017 Artificial Strawbery throat swells active Moderate to Flavoring Severe 04/14/2017 Midazolam ineffective/attac active ks people 04/14/2017 Tetracycline tachy active 04/14/2017 Shrimp Anaphylaxis active 04/14/2017 Crab Anaphylaxis active 04/14/2017 Lobster Anaphylaxis active Medications Medication Date Status Form Strength Qnty SIG Indications Ordering Provider Proair HFA Active Aerosol 108(90Base) 8.500gm 2 puffs R94.5 Santos T. 018 mcg/Act q4 hrs Pilar salguero MD wheeze Zofran Active Tablets 4mg take one Unknown 017 tablet as needed every 6 hours for nausea Oxycodone HCL Active Tablets 5mg 30tabs 1 by Santos [place] 017 mouth Pilar every 6 , MD hours as needed Levofloxacin Active Tablets 500mg 1 by Unknown 017 mouth every day Multivitamin 00/0 Active Tablets 1 po qd Unknown Adults 000 Vital Signs Date Vital Result Comment 04/14/2017 BP Systolic 110 mmHg BP Diastolic 60 mmHg Heart Rate 120 /min Body Temperature 98.8 F Respiratory Rate 16 /min Height 66.75 inches 5'6.75" Weight 245.00 lb BMI (Body Mass Index) 38.7 kg/m2 Results Test Date Test Result H/L Range Note CBC Electronic (a) 04/14/2017 WBC 18.8 High 3.6-9.6 1 RBC 5.19 3.90-5.70 Hemoglobin (Fma/CMC/CTX) 15.8 g/dL 12.1 - 17.2 Hematocrit (Fma/CMC/CTX) 47.4 % 36.1 - 50.3 Platelets 518 10^3/ul High 150-400 Lymph% 25.4 % 17.0-48.0 Mixed% 4.5 Neutrophils % 70.1 Mean Corpuscular Vol 91 82.2-97.4 Mean Corpuscular Hemoglobin 30.4 27.6-33.3 Mean Corpuscular Hemo Concen 33.2 32.0-36.0 RDW 13.3 11.6-13.7 Mean Platelet Volume 6.8 5.5-11.0 1 result ching'jamal HUITRON aware Procedures Description No Information Plan of Care 04/14/2017 - Santos Quezada, MDR94.5 Abnormal results of liver function studiesNew Medication:Proair HFA 108(90 Base) mcg/ActComments:We will check the CBC and LFT's. If concerning, consider ED and admission for IV hydration and further work up.
[2017-04-15] MEDS ORDERED: NS 0.9% 1000 ML* 1,000 ML IV ONE (19:46)
[2017-04-15] MEDS ORDERED: Ondansetron INJ* 2 MG/ML VIAL IV ONE (19:46)
[2017-04-15] MEDS ORDERED: Pantoprazole IV* 40 MG IV ONE (19:46)
[2017-04-15] MEDS ORDERED: fentaNYL* 50 MCG/ML 2 ML VIAL (100 MCG VIAL) IV SLOW PU ONE (19:48)
[2017-04-15 20:10] LABS: Hematocrit 43 % (35-47); Hemoglobin 14.9 g/dl (12.0-16.0); Mean Corpuscular HGB Conc 34 g/dl (31-36); Mean Corpuscular Hemoglobin 31 pg (27-31); Mean Corpuscular Volume 90 fL (80-97); Mean Platelet Volume 7 um3 (7.4-10.4); Platelet Count 493 10^3/ul (150-450); Red Blood Count 4.79 10^6/ul (4.0-5.4); Red Cell Distribution Width 13 % (10.5-15); White Blood Count 17.6 10^3/ul (3.5-10.8)
[2017-04-15 20:22] LABS: INR 0.82 (0.77-1.02)
[2017-04-15 20:28] LABS: EGFR Non-African American 90.7 (>60)
[2017-04-15 20:41] LABS: ABS Basophils 0.3 10^3/ul (0-0.2); ABS Eosinophils 1.4 10^3/ul (0-0.6); ABS Lymphocytes 5.3 10^3/ul (1.0-4.8); ABS Monocytes 1.2 10^3/ul (0-0.8); ABS Neutrophils 9.4 10^3/ul (1.5-7.7); ABS Nucleated RBC 0 10^3/ul; Lymphocyte % 30.2 % (25-47); Nucleated Red Blood Cells % 0
--- NOTE | 2017-04-15 20:57 | RAD ---
Indication: Shortness of breath. Comparison: April 11, [address] and chest radiograph. Technique: Upright AP 2041 hours Report: Clear lungs and pleural spaces. Negative for pneumothorax. The heart, pulmonary vasculature, and mediastinal contours are unremarkable. Unremarkable osseous structures and soft tissue contours. IMPRESSION: No evidence for acute intrathoracic disease.
--- NOTE | 2017-04-15 21:30 | RAD ---
Indication: Abdominal pain. Comparison: April 11, 2017 CT. Technique: RIGHT upper quadrant ultrasound. Report: Appropriate direction flow documented in the portal and hepatic veins. 17.9 cm liver is increased in echogenicity. Negative for focal hepatic lesions. Negative for intrahepatic biliary dilatation. 6.5 mm common bile duct at the upper limits of normal likely secondary to prior cholecystectomy. Post cholecystectomy. Negative for sonographic Love's sign. No abnormality of the partially visualized pancreas evident. Negative for ascites. 13 x 4.6 x 4.8 cm RIGHT kidney. 12.9 x 6.3 x 5.6 cm LEFT kidney. Normal bilateral renal cortical echogenicity. No focal renal lesions, conspicuous stones, or hydronephrosis. Normal diameter abdominal aorta visualized through the bifurcation. IMPRESSION: 1. Post cholecystectomy. 2. Fatty infiltration of the liver.
--- NOTE | 2017-04-15 21:51 | ED ---
[place] Angela, scribed for Boom Akers MD on 04/15/17 at 1930 . Abdominal Pain/Female - HPI Summary HPI Summary: This pt is a 36 y/o female presenting to [facility] c/o abd pain. Pt today presents with intermittent fever (max of 101 F on 04/11/17 and 2 days ago had 100 F), abd pain, dark urine. She states her abd pain is aggravated when she eats. Pt describes a "full stomach" feeling. her last bowel movement was this morning. She denies diarrhea, vomiting, nausea, constipation. Yesterday pt had repeat labs at her PCP's office, which showed an elevated WBC and decreased liver enzymes. Pt reports that last week pt had the "stomach flu" with nausea, vomiting and diarrhea. Pt notes she was unable to keep anything down. On 04/11/17, pt came to the ED and hospitalist was consulted for elevated liver enzymes. She was discharged with Levaquin 500 mg, oxycodone, and albuterol. Pt reports these stomach flu symptoms reminded her when she had problems with her liver and had a liver lobectomy in 2001. She had sphincter of Oddi surgically repaired in [facility], [place] 15 years ago. Pt was followed up for 5 years. - History of Current Complaint Chief Complaint: EDAbdPain Stated Complaint: LABS Time Seen by Provider: 04/15/17 19:19 Hx Obtained From: Patient Hx Last Menstrual Period: 04/11/17 Onset/Duration: Lasting Days, Still Present Timing: Days Severity Currently: Severe Pain Intensity: 10 Pain Scale Used: 0-10 Numeric Location: Discrete At: LUQ Radiates: No Aggravating Factor(s): Food Alleviating Factor(s): Nothing Associated Signs and Symptoms: Positive: Fever, Other: - dark urine. Negative: Constipation, Nausea, Vomiting, Diarrhea Allergies/Adverse Reactions: Allergies Allergy/AdvReac Type Severity Reaction Status Date / Time Aspirin Allergy Severe anaphylaxis Verified 04/15/17 19:26 Cephalosporins Allergy Severe anaphylaxis Verified 04/15/17 19:26 Iodinated Contrast Media Allergy Severe ANAPHYLAXIS Verified 04/15/17 19:26 [CONTRAST DYE] Iodine Allergy Severe THROAT Verified 04/15/17 19:26 SWELLING Latex Allergy Severe anaphylaxis Verified 04/15/17 19:26 Midazolam [From Versed] Allergy Severe SUICIDAL Verified 04/15/17 19:26 Morphine Allergy Severe anaphylaxis Verified 04/15/17 19:26 Penicillins [PCN] Allergy Severe anaphylaxis Verified 04/15/17 19:26 Promethazine [From Phenergan] Allergy Severe hallucintio Verified 04/15/17 19:26 ns Sulfa Drugs Allergy Severe anaphylaxis Verified 04/15/17 19:26 Tetracycline Allergy Severe anaphylaxis Verified 04/15/17 19:26 Gluten Meal Allergy Rash Verified 04/15/17 19:26 Naproxen [From Aleve] Allergy Rash Verified 04/15/17 19:26 PMH/Surg Hx/FS Hx/Imm Hx Endocrine/Hematology History: Reports: Hx Thyroid Disease - 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." Denies: Hx Diabetes Cardiovascular History: Reports: Hx Hypertension - WITH , Other Cardiovascular Problems/Disorders - CHRONIC MILD TACHYCARDUA Denies: Hx Congestive Heart Failure, Hx Deep Vein Thrombosis, Hx Myocardial Infarction, Hx Pacemaker/ICD Respiratory History: Reports: Hx Asthma - A CHILD Denies: Hx Chronic Obstructive Pulmonary Disease (COPD), Hx Lung Cancer, Hx Pneumonia, Hx Pulmonary Embolism GI History: Denies: Hx Gall Bladder Disease, Hx Gastrointestinal Bleed, Hx Ulcer, Hx Urosepsis History: Reports: Other Problems/Disorders - hx Hep A & Liver Problems Denies: Hx Kidney Stones, Hx Renal Disease Neurological History: Denies: Hx Dementia, Hx Migraine, Hx Seizures, Hx Transient Ischemic Attacks (TIA) Psychiatric History: Denies: Hx Anxiety, Hx Depression, Hx Schizophrenia, Hx Bipolar Disorder - Surgical History Surgery Procedure, Year, and Place: RUPTURED RIGHT ACHILLES TENDON REPAIR AT AGE 16, CHOLECYSTECTOMY, PARTIAL LIVER LOBECTOMY 2002, MULTIPLE LAPAROSCOPIC exploratory. appendectomy. tonsillectomy. 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, Hx Shingles - in past year, History Other Infectious Disease - "RAT BITE FEVER" Denies: Hx Clostridium Difficile, Hx Human Immunodeficiency Virus (HIV), Hx of Known/Suspected MRSA, Hx Tuberculosis, Hx Known/Suspected VRE, Hx Known/ Suspected VRSA, Traveled Outside the [place] in Last 30 Days - Family History Known Family History: Positive: Cardiac Disease, Hypertension, Diabetes - Social History Alcohol Use: Weekly Alcohol Amount: 3 drinks weekly Substance Use Type: Reports: None Smoking Status (MU): Former Smoker Review of Systems Positive: Fever ENT: Negative Cardiovascular: Negative Respiratory: Negative Positive: Abdominal Pain. Negative: Vomiting, Diarrhea, Nausea Genitourinary: Other - dark urine Musculoskeletal: Negative Skin: Negative Neurological: Negative All Other Systems Reviewed And Are Negative: Yes Physical Exam - Summary Physical Exam Summary: VITAL SIGNS: Reviewed. GENERAL: Patient is a well-developed and nourished female who is lying comfortable in the stretcher. Patient is not in any acute respiratory distress. HEAD AND FACE: No signs of trauma. No ecchymosis, hematomas or skull depressions. No sinus tenderness. EYES: PERRLA, EOMI x 2, No injected conjunctiva, no nystagmus. EARS: Hearing grossly intact. Ear canals and tympanic membranes are within normal limits. MOUTH: Oropharynx within normal limits. NECK: Supple, trachea is midline, no adenopathy, no JVD, no carotid bruit, no c- spine tenderness, neck with full ROM. CHEST: Symmetric, no tenderness at palpation LUNGS: Clear to auscultation bilaterally. No wheezing or crackles. CVS: Regular rate and rhythm, S1 and S2 present, no murmurs or gallops appreciated. ABDOMEN: Soft. Tenderness over the left upper quadrant. No signs of distention. No rebound no guarding, and no masses palpated. Bowel sounds are normal. EXTREMITIES: FROM in all major joints, no edema, no cyanosis or clubbing. NEURO: Alert and oriented x 3. No acute neurological deficits. Speech is normal and follows commands. SKIN: Dry and warm Triage Information Reviewed: Yes Vital Signs On Initial Exam: Initial Vitals Temp Pulse Resp BP Pulse Ox 97.5 F 64 20 117/94 96 04/15/17 16:46 04/15/17 16:46 04/15/17 16:46 04/15/17 16:46 04/15/17 16:46 Vital Signs Reviewed: Yes Diagnostics - Vital Signs Vital Signs Temp Pulse Resp BP Pulse Ox 04/15/17 18:48 97.4 F 66 18 117/88 98 04/15/17 16:46 97.5 F 64 20 117/94 96 - Laboratory Result Diagrams: 04/15/17 19:55 04/15/17 19:55 Lab Statement: Any lab studies that have been ordered have been reviewed, and results considered in the medical decision making process. - Radiology Chest XR Xray Interpretation: No Acute Changes - IMPRESSION: No evidence for acute intrathoracic disease. Dr. Akers has reviewed this radiology report. Radiology Interpretation Completed By: Radiologist - Ultrasound No standard instances Ultrasound Interpretation: Positive (See Comments) - Abdomen US IMPRESSION: 1. Post cholecystectomy. 2. Fatty infiltration of the liver. Dr. Akers has reviewed this radiology report. Ultrasound Interpretation Completed By: Radiologist Re-Evaluation - Re-Evaluation First Eval Re-Evaluation Time: 21:46 Comment: I reviewed lab and imaging results with the pt. Pt feels better. Abdominal Pain Fem Course/Dx - Course Course Of Treatment: This pt is a 36 y/o female presenting to [facility] c/o abd pain. Pt today presents with intermittent fever (max of 101 F on 04/11/17 and 2 days ago had 100 F), abd pain, dark urine. She states her abd pain is aggravated when she eats. Pt describes a "full stomach" feeling. her last bowel movement was this morning. She denies diarrhea, vomiting, nausea, constipation. Yesterday pt had repeat labs at her PCP's office, which showed an elevated WBC and decreased liver enzymes. In the ED course, the pt was given IV fluids, fentanyl, Zofran, and Protonix. Chest XR is negative. US shows 1. Post cholecystectomy. 2. Fatty infiltration of the liver. Pt feels better. I reviewed the lab and imaging results with the pt. There is nothing to explain the pt's leukocytosis. Pt does not have left shift. Therefore, it could be from stress/anxiety. Pt will be discharged to home to follow up with primary MD. She is instructed to continue taking her current medications. - Diagnoses Provider Diagnoses: Abdominal pain Discharge - Discharge Plan Condition: Stable Disposition: HOME Patient Education Materials: Abdominal Pain (ED) Referrals: Santos Quezada MD [Primary Care Provider] - Additional Instructions: Continue taking your current medications. Please follow up with your primary care provider. RETURN TO EMERGENCY DEPARTMENT FOR ANY NEW OR WORSENING SYMPTOMS. The documentation as recorded by the [place] accurately reflects the service I personally performed and the decisions made by me, Boom Akers MD.
[2017-04-15 22:02] VITALS: BP 121/86
== END 2017-04-15 22:01 | disposition home or self-care (01) ==
LOC: ED 16:43
DX: R10.12 Left upper quadrant pain (principal); R50.9 Fever, unspecified; Z32.02 Encounter for pregnancy test, result negative; E07.9 Disorder of thyroid, unspecified; Z90.49 Acquired absence of other specified parts of digestive tract; Z88.5 Allergy status to narcotic agent; Z88.0 Allergy status to penicillin; Z88.2 Allergy status to sulfonamides; Z88.6 Allergy status to analgesic agent; Z88.1 Allergy status to other antibiotic agents; Z91.041 Radiographic dye allergy status; Z91.040 Latex allergy status; Z87.891 Personal history of nicotine dependence
CPT/HCPCS: 36415; 71045; 76700; 80053; 82150; 83605; 84702; 85025; 85060; 85610; 85730; 86140; 86308; 96374; 96375; 99284; J2405; J3010

== ENCOUNTER 2018-10-08 17:56 | Emergency (ER) | payer BC, OTHER ==
[2018-10-08 18:18] VITALS: BP 139/98
--- NOTE | 2018-10-08 18:58 | UC ---
Knee Pain HPI - HPI Summary HPI Summary: Pt presents to urgent care with right knee pain. Patient was at work when she states she was lifting a pile of items and twisted. Patient states she felt fine pain in her right knee. Patient states she lost her balance and caught herself as she was falling. Patient with persistent pain since this time in the posterior lateral aspect of her knee. No paresthesias. No leg weakness. Patient did not take anything for pain. Patient without a previous history of the injury. Patient without any other injuries. Medications reviewed this visit. - History of Current Complaint Chief Complaint: UCLowerExtremity Stated Complaint: RT KNEE INJURY Time Seen by Provider: 10/08/18 18:51 Hx Obtained From: Patient Hx Last Menstrual Period: 04/11/17 Pain Intensity: 10 - Allergies/Home Medications Allergies/Adverse Reactions: Allergies Allergy/AdvReac Type Severity Reaction Status Date / Time aspirin Allergy Anaphylatic Verified 10/08/18 18:18 Shock Cephalosporins Allergy Anaphylatic Verified 10/08/18 18:18 Shock Iodinated Contrast- Oral and Allergy Hives Verified 10/08/18 18:18 IV Dye iodine Allergy Hives Verified 10/08/18 18:18 Latex, Natural Rubber Allergy Anaphylatic Verified 10/08/18 18:18 Shock midazolam [From Versed] Allergy Hallucinati Verified 10/08/18 18:18 ons morphine Allergy Hallucinati Verified 10/08/18 18:18 ons naproxen Allergy Joint Pain Verified 10/08/18 18:18 Penicillins Allergy Anaphylatic Verified 10/08/18 18:18 Shock promethazine [From Phenergan] Allergy Joint Pain Verified 10/08/18 18:18 Sulfa (Sulfonamide Allergy Anaphylatic Verified 10/08/18 18:18 Antibiotics) Shock Tetracyclines Allergy Anaphylatic Verified 10/08/18 18:18 Shock PMH/Surg Hx/FS Hx/Imm Hx Previously Healthy: Yes Other History Of: Negative For: HIV, Hepatitis B, Hepatitis C - Surgical History Surgical History: Yes Surgery Procedure, Year, and Place: RUPTURED RIGHT ACHILLES TENDON REPAIR AT AGE 16, CHOLECYSTECTOMY, PARTIAL LIVER LOBECTOMY 2002, MULTIPLE LAPAROSCOPIC exploratory. appendectomy. tonsillectomy. ear tubes as child - Family History Known Family History: Positive: Cardiac Disease, Hypertension, Diabetes, Non- Contributory - Social History Occupation: Employed Full-time Lives: With Family Alcohol Use: Rare Alcohol Amount: 3 drinks weekly Substance Use Type: None Smoking Status (MU): Former Smoker - Immunization History Most Recent Influenza Vaccination: NOT UTD Most Recent Tetanus Shot: october 2016 Review of Systems All Other Systems Reviewed And Are Negative: Yes Musculoskeletal: Positive: Other: - right knee pain Neurological: Negative: Weakness, Paresthesia Is Patient Immunocompromised?: Yes Physical Exam - Summary Physical Exam Summary: Vital Signs Reviewed: Yes A+Ox3, obvious discomfort Eyes: Conjunctiva Clear ENT: Hearing grossly normal neck: supple Respiratory: Positive: No respiratory distress, No accessory muscle use Cardiovascular: skin color reflect adequate perfusion Musculoskeletal Exam: + SLE limited flexion with posterior and lateral knee pain >60 and full extension, + flex/ext ankle with discomfort posterior knee + TTP right lateral aspect of distal femur and patella. Discomfort lateral aspect of hamstring Pt with right calf spasm palpable. No pain along achilles or insertion at calcaneous Neurological: Positive: Alert, ambulatory with difficulty + gross sensation throughout Psychological: Positive: Normal Response To Family Skin: Positive: no rash, no ecchymosis Triage Information Reviewed: Yes Vital Signs: Initial Vital Signs Temp 99.0 F 10/08/18 18:11 Pulse 97 10/08/18 18:11 Resp 18 10/08/18 18:11 BP 139/98 10/08/18 18:11 Pulse Ox 99 10/08/18 18:11 Knee Pain Course/Dx - Course Course Of Treatment: Patient presents to urgent care for evaluation of pain in her right knee that started when she was standing and twisted at work. Patient with pain with full extension and flexion. Pain mostly in the posterior lateral aspect. Patient distal CSM is intact. Patient well-appearing send her to the same. On exam vital signs are stable. Patient with point tenderness lateral aspect of the distal femur as well as along the insertion of the hamstring laterally. Patient images revealed possible chip fracture however this is a preliminary patient did reviewed this patient. We'll place an Román wrap and crutches. Workmen's Comp. paperwork completed. We'll give patient some [place] here she is in significant pain. Advised patient to take Motrin which she states she can take despite having aspirin as well as [place]. Patient has previously had despite her morphine allergy without difficulty. Recommend ice. Follow-up with orthopedics. Patient comfortable in agreement with plan. Patient given a work note. - Differential Dx/Diagnosis Provider Diagnosis: Right knee injury Discharge - Sign-Out/Discharge Documenting (check all that apply): Patient Departure All imaging exams completed and their final reports reviewed: No - Discharge Plan Condition: Stable Disposition: HOME Prescriptions: Hydrocodone/Acetaminophen [[place] 5-325 Tablet] 1 - 2 each PO Q6HR PRN #15 tablet MDD 8 PRN Reason: Severe Pain Patient Education Materials: Knee Sprain (ED) Referrals: Lex Keller MD [Medical Doctor] - Ovidio Le MD [Medical Doctor] - Santos Quezada MD [Primary Care Provider] - Additional Instructions: -wear román wrap for comfort and support -apply ice (20 min at a time) every 2-3 hours for the next 2 day - use Crutches until you are seen by orthopedics in follow-up. -Elevate your leg - this will help with swelling and pain - Alternate ibuprofen (advil, Motrin) 600mg and tylenol product (Tylenol or Tylenol with hydrocodone) every 3 hours for pain. Take with food. Do NOT take for more than 4-5 days -Contact the orthopedic providers on Wednesday to schedule a follow-up appointment this week. As discussed, your radiograph was reviewed by the provider that treated you tonight. It will be read by a radiologist tomorrow morning. If there is a finding other than that discussed with you today, you will receive a call from a care provider. - Billing Disposition and Condition Condition: STABLE Disposition: Home
[2018-10-08] MEDS ORDERED: HYDROcodone/ACETAMIN 5-325 MG* 1 TAB PO ONE (19:37)
--- NOTE | 2018-10-09 08:26 | UC ---
- Progress Note Progress Note: Patient Name: DIANN CORTEZ Medical Record#: [id number] Ordering Physician: Mickey So NP Acct.#: [id number] : 1980 Age: 37 Sex: F Location: [facility] [place] Exam Date: 10/08/181825 ADM Status: DEP ER Order Information: KNEE RIGHT 4+ VWS Accession Number: [id number] CPT: 41940 Indication: Right knee injury. 4 views of the right knee demonstrates no fracture. Suprapatellar effusion is noted. No other bone or joint abnormality is identified. Tiny bony fragment off the lateral aspect of the lateral femoral condyle is noted. IMPRESSION: Suprapatellar effusion. Bony fragment off the lateral aspect of the lateral femoral condyle. Lateral collateral ligament avulsion is not totally excluded. Suprapatellar effusion is noted. <Electronically signed by Jocelyn Ortega MD in OV> 10/09/18754 Dictated By: Jocelyn Ortega MD Dictated Date/Time: 10/09/18754 Transcribed Date/Time: 10/09/18 0746 Copy to: CC:Mickey So NP; Brittany Zayas MD; Santos Quezada MD Imaging - [facility] Imaging - [facility] [address] [place] [address] ph ([phone]) ph ([phone]) ph ([phone]) This report is only to be considered final once signed by the Provider(s) as displayed in the "<Electronically Signed by >" field (s). Absence of a signature indicates the report is in a draft status and still needs to be finalized. In the event this document was created by someone other than the signing Provider, the individual initiating the document will be listed in the "Entered by:" or "Dictated by:" zabala. 1 of 1 Course/Dx - Diagnoses Provider Diagnoses: Right knee injury Discharge - Sign-Out/Discharge Documenting (check all that apply): Post-Discharge Follow Up All imaging exams completed and their final reports reviewed: Yes - Discharge Plan Condition: Stable Disposition: HOME Prescriptions: Hydrocodone/Acetaminophen [[place] 5-325 Tablet] 1 - 2 each PO Q6HR PRN #15 tablet MDD 8 PRN Reason: Severe Pain Patient Education Materials: Knee Sprain (ED) Referrals: Lex Keller MD [Medical Doctor] - Ovidio Le MD [Medical Doctor] - Santos Quezada MD [Primary Care Provider] - Additional Instructions: -wear luis wrap for comfort and support -apply ice (20 min at a time) every 2-3 hours for the next 2 day - use Crutches until you are seen by orthopedics in follow-up. -Elevate your leg - this will help with swelling and pain - Alternate ibuprofen (advil, Motrin) 600mg and tylenol product (Tylenol or Tylenol with hydrocodone) every 3 hours for pain. Take with food. Do NOT take for more than 4-5 days -Contact the orthopedic providers on Wednesday to schedule a follow-up appointment this week. As discussed, your radiograph was reviewed by the provider that treated you tonight. It will be read by a radiologist tomorrow morning. If there is a finding other than that discussed with you today, you will receive a call from a care provider. - Billing Disposition and Condition Condition: STABLE Disposition: Home
== END 2018-10-08 20:24 | disposition home or self-care (01) ==
LOC: UCEAST 17:56
DX: S89.91XA Unspecified injury of right lower leg, initial encounter (principal); X50.9XXA Other and unspecified overexertion or strenuous movements or postures, initial encounter; Y92.9 Unspecified place or not applicable; Z88.5 Allergy status to narcotic agent; Z88.0 Allergy status to penicillin; Z88.2 Allergy status to sulfonamides; Z91.040 Latex allergy status; Z87.891 Personal history of nicotine dependence
CPT/HCPCS: 99213; G0463

== ENCOUNTER 2018-10-12 09:34 | Emergency (ER) | payer OTHER ==
[2018-10-12] MEDS ORDERED: diPHENhydraMINE IV* 50 MG/ML 1 ml VIAL (BENADRYL) IV ONE (09:38)
[2018-10-12] MEDS ORDERED: Famotidine IV* 10 MG/ML 2 ML (20 mg) IV SLOW PU ONE (09:39)
[2018-10-12 09:42] VITALS: BP 175/113
--- OUTSIDE RECORDS SUMMARY | 2018-10-12 09:45 | XMS REPORT | Continuity of Care Document ---
:1980 External Reference #:[id number] Author Name Cesarioluis alfredocasieYanet Care Team Providers Name Role Phone Santos Quezada MD Primary Care Physician Unavailable Payers Date Identification Numbers Payment Provider Subscriber Effective: 2016 Policy Number: [id number] [employer] Basil William PayID: [id number] [address] [address] [place] [address] Onset: 2018 Policy Number: [id number] Francisco William Group Number: [id number] [phone] [address] [address] [place] [address] Problems Active Problems Provider Date Hypertensive disorder Onset: Asthma Onset: Viral hepatitis, type A Onset: Cirrhosis and chronic liver disease Onset: Gastroesophageal reflux disease Onset: Thyroid disorder screening Onset: Simple goiter Onset: Family History Date Family Member(s) Observation Comments General Diabetes General Hypertension General Stroke General Cancer Social History Type Date Description Comments Sex Unknown Lives With Spouse Occupation Currently Working ETOH Use Occasionally consumes alcohol Tobacco Use Start: Unknown End: Patient is a former smoker Unknown Smoking Status Reviewed: 10/11/18 Patient is a former smoker Exercise Type/Frequency Exercises regularly Allergies, Adverse Reactions, Alerts Active Allergies Reaction Severity Comments Date Latex 10/11/2018 Iodine 10/11/2018 Ceftin 10/11/2018 Sulfa Antibiotics 10/11/2018 Cefaclor 10/11/2018 Phenergan 10/11/2018 Aspirin 10/11/2018 Morphine 10/11/2018 Tetracycline 10/11/2018 Medications Active Medications SIG Qnty Indications Ordering Date Provider Medrol take as directed per 21tabs Lex Delgadillo 10/11/2018 4mg Tablets dospak instructions MD Arianna Hydrocodone-Acetami Brittany Mann, bettina HUITRON 5-325mg Tablets Vital Signs Date Vital Result Comment 10/11/2018 10:18am Height 67.25 inches 5'7.25" Weight 220.00 lb Heart Rate 76 /min BP Systolic 126 mmHg BP Diastolic 74 mmHg Respiratory Rate 12 /min Pain Level 7 BMI (Body Mass Index) 34.2 kg/m2 Encounters Type Date Location Provider Dx Diagnosis Office Visit 04/11/2017 [facility] Vicky Ding N.P. J18.1 Lobar pneumonia, 7:35a Assoc,pc unspecified Hospitalists organism K75.9 Inflammatory liver disease, unspecified Office Visit 05/26/2010 9:15a Neurosurgery August Hamilton 721.0 Spondylosis [facility] Ingram M.D. 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 Disturbance Office Visit 07/29/2009 Orthopedic Eli, 727.05 Tenosynovitis Hand 10:30a Services Of Robyn Toussaint, & Wrist Other R.S.A.-O Plan of Treatment 10/11/2018 - Lex Keller, MDM25.561 Pain in right kneeNew Xrays:MRI Knee Right W/O, Ordered: 10/11/18Follow up:Follow up: after MRIM25.461 Effusion, right knee
[2018-10-12] MEDS ORDERED: NS 0.9% 1000 ML** 1,000 ML IV ONE (09:48)
--- NOTE | 2018-10-12 10:16 | UC ---
UC General HPI - HPI Summary HPI Summary: 37-year-old woman comes in with a chief complaint of chest pain and difficulty breathing. Patient reports all the symptoms started right after taking a dose of an oral steroid. She was started on a steroid for swelling in the right knee yesterday. She had one dose yesterday. No difficulty swallowing. She is having splinting bilateral lower posterior chest pain. She does have a brace on her right knee. - History of Current Complaint Chief Complaint: UCAllergicReaction Stated Complaint: ALLERGIC REACTION DIFF BREATHING Time Seen by Provider: 10/12/18 09:35 Hx Last Menstrual Period: 09/29/18 Pain Intensity: 0 - Allergy/Home Medications Allergies/Adverse Reactions: Allergies Allergy/AdvReac Type Severity Reaction Status Date / Time aspirin Allergy Anaphylatic Verified 10/12/18 09:42 Shock Cephalosporins Allergy Anaphylatic Verified 10/12/18 09:42 Shock Iodinated Contrast- Oral and Allergy Hives Verified 10/12/18 09:42 IV Dye iodine Allergy Hives Verified 10/12/18 09:42 Latex, Natural Rubber Allergy Anaphylatic Verified 10/12/18 09:42 Shock midazolam [From Versed] Allergy Hallucinati Verified 10/12/18 09:42 ons morphine Allergy Hallucinati Verified 10/12/18 09:42 ons naproxen Allergy Joint Pain Verified 10/12/18 09:42 Penicillins Allergy Anaphylatic Verified 10/12/18 09:42 Shock promethazine [From Phenergan] Allergy Joint Pain Verified 10/12/18 09:42 Sulfa (Sulfonamide Allergy Anaphylatic Verified 10/12/18 09:42 Antibiotics) Shock Tetracyclines Allergy Anaphylatic Verified 10/12/18 09:42 Shock Home Medications: Home Medications methylPREDNISolone [Methylprednisolone] 4 mg PO DAILY 10/12/18 [History Confirmed 10/12/18] PMH/Surg Hx/FS Hx/Imm Hx Previously Healthy: Yes Other History Of: Negative For: HIV, Hepatitis B, Hepatitis C - Surgical History Surgical History: Yes Surgery Procedure, Year, and Place: RUPTURED RIGHT ACHILLES TENDON REPAIR AT AGE 16, CHOLECYSTECTOMY, PARTIAL LIVER LOBECTOMY 2002, MULTIPLE LAPAROSCOPIC exploratory. appendectomy. tonsillectomy. ear tubes as child - Family History Known Family History: Positive: Cardiac Disease, Hypertension, Diabetes, Non- Contributory - Social History Alcohol Use: Rare Alcohol Amount: 3 drinks weekly Substance Use Type: None Smoking Status (MU): Former Smoker - Immunization History Most Recent Influenza Vaccination: NOT UTD Most Recent Tetanus Shot: october 2016 Review of Systems All Other Systems Reviewed And Are Negative: Yes Constitutional: Positive: Negative Skin: Positive: Other - FACE IS RED Eyes: Positive: Negative ENT: Positive: Negative Respiratory: Positive: Shortness Of Breath, Other - SEE HPI Cardiovascular: Positive: Chest Pain, Other - SEE HPI Motor: Positive: Other - RT KNEE IN BRACE Neurovascular: Positive: Negative Musculoskeletal: Positive: Other: - SEE HPI Neurological: Positive: Negative Psychological: Positive: Anxious Is Patient Immunocompromised?: No Physical Exam Triage Information Reviewed: Yes Appearance: No Pain Distress, Well-Nourished, Ill-Appearing - ANXIOUS, BREATHING RAPIDLY Vital Signs: Initial Vital Signs Temp 98.3 F 10/12/18 09:38 Pulse 125 10/12/18 09:38 Resp 24 10/12/18 09:38 BP 175/113 10/12/18 09:38 Pulse Ox 97 10/12/18 09:38 Vital Signs Reviewed: Yes Eye Exam: Normal Eyes: Positive: Conjunctiva Clear ENT: Negative: Muffled voice, Hoarse voice Neck: Positive: Supple Respiratory: Positive: Lungs clear, Other: - [place] Cardiovascular: Positive: Tachycardia Musculoskeletal: Positive: Other: - RT KNEE IN BRACE Neurological: Positive: Alert Psychological: Positive: Other: - ANXIOUS Skin: Positive: Other - FACE RED Course/Dx - Course Course Of Treatment: TRANSFERRED TO EMERGENCY DEPARTMENT BY AMBULANCE GIVEN BENADRYL 50MG AND PEPCID 40MG IV IN CLINIC - Diagnoses Provider Diagnosis: Chest pain, Shortness of breath Discharge - Sign-Out/Discharge Documenting (check all that apply): Patient Departure All imaging exams completed and their final reports reviewed: No Studies - Discharge Plan Condition: Stable Disposition: TRANS HIGHER LVL OF CARE FAC Referrals: Santos Quezada MD [Primary Care Provider] - - Billing Disposition and Condition Condition: STABLE Disposition: Trans Higher Lvl of Care Fac
== END 2018-10-12 10:02 | disposition short-term general hospital (02) ==
LOC: UCEAST 09:34
DX: R07.9 Chest pain, unspecified (principal); R06.02 Shortness of breath; Z88.5 Allergy status to narcotic agent; Z88.0 Allergy status to penicillin; Z88.2 Allergy status to sulfonamides; Z91.040 Latex allergy status; Z87.891 Personal history of nicotine dependence
CPT/HCPCS: 96360; 96374; 96375; 96376; 99213; G0463; J1200

== ENCOUNTER 2018-10-12 10:14 | Emergency (ER) | payer OTHER ==
--- NOTE | 2018-10-12 10:24 | ED ---
Shortness of Breath - HPI Summary HPI Summary: This patient is a 37 year old F presenting to [facility] by EMS with a chief complaint of shortness of breath that began at 0900. She reports that she had an evulsion fracture in the knee on 10/08/18. On 10/11/18 she went to orthopedist and given prednisone. About one hour after the appointment she developed mid back pain, which worsened over time eventually resulting in SOB. Pt reports feeling dizzy at 9 am but has since lessened. 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 She does not think the SOB is due to asthma. Per triage the patient rates the pain intensity 8/10. - History of Current Complaint Hx Obtained From: Patient Onset/Duration: Gradual Onset, Lasting Hours, Still Present Timing: Constant Current Severity: Severe Alleviating Factors: Nothing Associated Signs & Symptoms: Dizzy - Allergy/Home Medications Allergies/Adverse Reactions: Allergies Allergy/AdvReac Type Severity Reaction Status Date / Time aspirin Allergy Anaphylatic Verified 10/12/18 09:42 Shock Cephalosporins Allergy Anaphylatic Verified 10/12/18 09:42 Shock Iodinated Contrast- Oral and Allergy Hives Verified 10/12/18 09:42 IV Dye iodine Allergy Hives Verified 10/12/18 09:42 Latex, Natural Rubber Allergy Anaphylatic Verified 10/12/18 09:42 Shock midazolam [From Versed] Allergy Hallucinati Verified 10/12/18 09:42 ons morphine Allergy Hallucinati Verified 10/12/18 09:42 ons naproxen Allergy Joint Pain Verified 10/12/18 09:42 Penicillins Allergy Anaphylatic Verified 10/12/18 09:42 Shock promethazine [From Phenergan] Allergy Joint Pain Verified 10/12/18 09:42 Sulfa (Sulfonamide Allergy Anaphylatic Verified 10/12/18 09:42 Antibiotics) Shock Tetracyclines Allergy Anaphylatic Verified 10/12/18 09:42 Shock PMH/Surg Hx/FS Hx/Imm Hx Endocrine/Hematology History: Reports: Hx Thyroid Disease - 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." Denies: Hx Diabetes Cardiovascular History: Reports: Hx Hypertension - WITH , Other Cardiovascular Problems/Disorders - CHRONIC MILD TACHYCARDUA Denies: Hx Congestive Heart Failure, Hx Deep Vein Thrombosis, Hx Myocardial Infarction, Hx Pacemaker/ICD Respiratory History: Reports: Hx Asthma - A CHILD Denies: Hx Chronic Obstructive Pulmonary Disease (COPD), Hx Lung Cancer, Hx Pneumonia, Hx Pulmonary Embolism GI History: Denies: Hx Gall Bladder Disease, Hx Gastrointestinal Bleed, Hx Ulcer, Hx Urosepsis History: Reports: Other Problems/Disorders - hx Hep A & Liver Problems Denies: Hx Kidney Stones, Hx Renal Disease Neurological History: Denies: Hx Dementia, Hx Migraine, Hx Seizures, Hx Transient Ischemic Attacks (TIA) Psychiatric History: Denies: Hx Anxiety, Hx Depression, Hx Schizophrenia, Hx Bipolar Disorder - Surgical History Surgery Procedure, Year, and Place: RUPTURED RIGHT ACHILLES TENDON REPAIR AT AGE 16, CHOLECYSTECTOMY, PARTIAL LIVER LOBECTOMY 2002, MULTIPLE LAPAROSCOPIC exploratory. appendectomy. tonsillectomy. 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, Hx Shingles - in past year, History Other Infectious Disease - "RAT BITE FEVER" Denies: Hx Clostridium Difficile, Hx Human Immunodeficiency Virus (HIV), Hx of Known/Suspected MRSA, Hx Tuberculosis, Hx Known/Suspected VRE, Hx Known/ Suspected VRSA - Family History Known Family History: Positive: Cardiac Disease, Hypertension, Diabetes, Non- Contributory - Social History Alcohol Use: Rare Alcohol Amount: 3 drinks weekly Substance Use Type: Reports: None Smoking Status (MU): Former Smoker Review of Systems Positive: Shortness Of Breath Positive: Other - Pos - mid back pain Neurological: Other - pos - dizzy All Other Systems Reviewed And Are Negative: Yes Physical Exam - Summary Physical Exam Summary: VITAL SIGNS: Reviewed. GENERAL: Patient is a well-developed and nourished FEMALE who is lying comfortable in the stretcher. Patient is not in any acute respiratory distress. HEAD AND FACE: No signs of trauma. No ecchymosis, hematomas or skull depressions. No sinus tenderness. EYES: PERRLA, EOMI x 2, No injected conjunctiva, no nystagmus. EARS: Hearing grossly intact. Ear canals and tympanic membranes are within normal limits. MOUTH: Oropharynx within normal limits. NECK: Supple, trachea is midline, no adenopathy, no JVD, no carotid bruit, no c- spine tenderness, neck with full ROM. CHEST: Symmetric, no tenderness at palpation LUNGS: Clear to auscultation bilaterally. No wheezing or crackles. SOB, able to speak in partial sentences CVS: Regular rate and rhythm, S1 and S2 present, no murmurs or gallops appreciated. ABDOMEN: Soft, non-tender. No signs of distention. No rebound no guarding, and no masses palpated. Bowel sounds are normal. EXTREMITIES: FROM in all major joints, no edema, no cyanosis or clubbing. NEURO: Alert and oriented x 3. No acute neurological deficits. Speech is normal and follows commands. SKIN: Dry and warm. Triage Information Reviewed: Yes Vital Signs On Initial Exam: Initial Vital Signs Temp 98.4 F 10/12/18 10:16 Pulse 101 10/12/18 10:16 Resp 25 10/12/18 10:16 BP 153/102 10/12/18 10:16 Pulse Ox 100 10/12/18 10:16 Vital Signs Reviewed: Yes Diagnostics - Laboratory Result Diagrams: 10/12/18 10:34 10/12/18 10:34 Lab Statement: Any lab studies that have been ordered have been reviewed, and results considered in the medical decision making process. - Radiology CXR Radiology Interpretation Completed By: Radiologist Summary of Radiographic Findings: CXR reveals, per radiologist, IMPRESSION: #. Relative low lung volumes for this patient compared with the prior exam with associated. mild subsegmental atelectasis. ED physician has reviewed this radiology report. - CT Chest CT CT Interpretation Completed By: Radiologist Summary of CT Findings: Chest CT reveals, per radiologist, IMPRESSION: IMPRESSION: #. Mild bilateral dependent atelectasis. No evidence for pneumonia. #. Negative for pleural effusions or pneumothorax. #. Chronic LEFT thyroid lobe nodule as described. Consider nonemergent follow-up thyroid. ultrasound for more accurate comparison with the remote prior exam. #. Bilateral benign lipid rich adrenal adenomas. #. Multilevel mild thoracic degenerative spondylosis. Negative for fracture. ED physician has reviewed this radiology report. - EKG 1017 EKG Rhythm: Sinus Rhythm - 95 bpm Summary of EKG Findings: EKG reveals sinus rhythm 95 bpm, no ST elevations, normal axis. Re-Evaluation - Re-Evaluation First Eval Re-Evaluation Time: 17:02 Comment: Discussed results and plan of care with pt. Lung exam before discharge : CTA B/L. Good air exchange. No wheezing or crackles heard. CVS: S1 and S2 present. No murmurs appreciated. Patient is alert and oriented x 3. Patient is hemodynamically stable. Course/Dx - Course Assessment/Plan: This patient is a 37 year old F presenting to [facility] with a chief complaint of shortness of breath that began at 0900. She reports that she had an evulsion fracture in the knee on 10/08/18. On 10/11/18 she went to orthopedist and given prednisone. About one hour after the appointment she developed mid back pain, which worsened over time eventually resulting in SOB. Pt reports feeling dizzy at 9 am but has since lessened. 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 She does not think the SOB is due to asthma. Per triage the patient rates the pain intensity 8/10. Past medical history significant for asthma. In ED course the patient was given IV fluids, blood work disorder and the patient was placed in a alteration inspector. Blood test results without any significant abnormality except for the bases of 11.5, d-dimer is less than 200, BNP 892. Urinalysis is negative for UTI. The blood work shows that the patients d-dimer is negative therefore no suspicion for PE. The BMP is 892 therefore the patient was given a dose of Lasix. Troponin is 0.00. Chest x-ray impression: Negative: Volumes for this patient compared to the prior exam associated with mild subsegmental atelectasis. Because of the chest x-ray findings the patient may benefit therefore of a DuoNeb. CT chest IMPRESSION: #. Mild bilateral dependent atelectasis. No evidence for pneumonia. #. Negative for pleural effusions or pneumothorax. #. Chronic LEFT thyroid lobe nodule as described. Consider non emergency follow-up thyroid ultrasound for more accurate comparison with the remote prior exam. #. Bilateral benign lipid rich adrenal adenomas. #. Multilevel mild thoracic degenerative spondylosis. Negative for fracture. After the patient was given fentanyl for pain in the back she reports that she had some itching therefore she was given Benadryl. At this time because of the increased BNP with no history of CHF. I discussed the case with Dr. Herrera from the hospitalist services who will consult for this patient. After her consultation she recommended for the patient to be giving a prescription for albuterol inhaler, [place] for pain, and hydroxyzine. She does not recommend or any Lasix for the increasing BNP. Therefore I discussed the findings and test results with the patient and she agrees with the plan. I discussed all the findings and test results with the patient. Patient was instructed to return to the emergency room immediately if any of the symptoms return worsens. Plan of care was discussed with the patient and understands and agrees. All questions were answered at patient satisfaction. There were no further complaints or concerns. Lung exam before discharge: CTA B/L. Good air exchange. No wheezing or crackles heard. CVS: S1 and S2 present. No murmurs appreciated. Patient is alert and oriented x 3. Patient is hemodynamically stable. Patient will be discharged home with follow up PCP in the next 2-3 days - Diagnoses Provider Diagnoses: Dyspnea, Back pain - Physician Notifications Discussed Care of Patient With: Promise Herrera Time Discussed With Above Provider: 15:37 Instructed by Provider To: Other - Discussed case with Dr Herrera. and she recommended for the patient to be giving a prescription for albuterol inhaler, [place] for pain, and hydroxyzine. She does not recommend any Lasix for the increasing BNP. Discharge - Sign-Out/Discharge Documenting (check all that apply): Patient Departure - Discharge Patient Received Moderate/Deep Sedation with Procedure: No - Discharge Plan Condition: Stable Disposition: HOME Prescriptions: Albuterol HFA INHALER* [Ventolin HFA Inhaler*] 2 puff INH Q6H PRN #1 mdi PRN Reason: Sob/Wheezing HYDROcodone/ACETAMIN 5-325 MG* [[place] 5-325 TAB*] 1 tab PO Q6H PRN #10 tab MDD 4 PRN Reason: Pain hydrOXYzine HCL TAB* [Atarax 25 MG TAB*] 25 mg PO TID PRN #30 tab PRN Reason: Allergy Symptoms Patient Education Materials: Dyspnea (ED), Back Pain (ED) Referrals: Santos Quezada MD [Primary Care Provider] - 3 Days Additional Instructions: Follow up with your primary care provider within three days RETURN TO THE ED FOR ANY WORSENING OR NEW SYMPTOMS. - Billing Disposition and Condition Condition: STABLE Disposition: Home - Attestation Statements Document Initiated by Scribe: Yes Documenting Scribe: Yaquelin Velazco Provider For Whom Scribe is Documenting (Include Credential): Dr. Supa Coronado MD Scribe Attestation: I, Yaquelin Velazco, scribed for Dr. Supa Coronado MD on 10/12/18 at 2138. Scribe Documentation Reviewed: Yes Provider Attestation: The documentation as recorded by the Yaquelin chavez accurately reflects the service I personally performed and the decisions made by me, Dr. Supa Coronado MD Status of Scribe Document: Viewed
[2018-10-12 10:47] LABS: ABS Basophils 0.1 10^3/ul (0-0.2); ABS Eosinophils 0.2 10^3/ul (0-0.6); ABS Monocytes 0.9 10^3/ul (0-0.8); ABS Neutrophils 7.3 10^3/ul (1.5-7.7); Hematocrit 43 % (35-47); Hemoglobin 14.8 g/dL (12.0-16.0); Lymphocyte % 25.8 %; Mean Corpuscular HGB Conc 34 g/dL (31-36); Mean Corpuscular Hemoglobin 31 pg (27-31); Mean Corpuscular Volume 90 fL (80-97); Mean Platelet Volume 7.6 fL (7.4-10.4); Platelet Count 433 10^3/uL (150-450); Red Blood Count 4.83 10^6 /uL (3.70-4.87); Red Cell Distribution Width 13 % (10-15); White Blood Count 11.5 10^3/uL (3.5-10.8)
[2018-10-12 11:01] LABS: ALT 20 U/L (7-52); AST 16 U/L (13-39); Activated Partial Thrombo Time 35.2 seconds (26.0-38.0); Albumin 4.5 g/dL (3.2-5.2); Albumin/Globulin Ratio 1.5 (1-3); Alkaline Phosphatase 56 U/L (34-104); Anion Gap 7 mmol/L (2-11); BUN/Creatinine Ratio 16.4 (8-20); Blood Urea Nitrogen 10 mg/dL (6-24); C Reactive Protein 3.16 mg/L (<8.01); CO2 Carbon Dioxide 28 mmol/L (22-32); Calcium 9.7 mg/dL (8.6-10.3); Chloride 106 mmol/L (101-111); Creatine Kinase 77 U/L (10-223); EGFR African American 134.3 (>60); Glucose 91 mg/dL (70-100); INR 0.91 (0.82-1.09); Potassium 3.7 mmol/L (3.5-5.0); Sodium 141 mmol/L (135-145); Total Protein 7.5 g/dL (6.4-8.9)
[2018-10-12 11:07] LABS: CKMB ng/mL 1.5 ng/mL (0.6-6.3); HCG Pregnancy < 0.60 mIU/mL
[2018-10-12 11:27] LABS: Urine Appearance Cloudy; Urine Bilirubin Negative (Negative); Urine Blood Negative (Negative); Urine Color Straw; Urine Glucose Negative (Negative); Urine Ketones Negative (Negative); Urine Nitrite Negative (Negative); Urine Protein Negative (Negative); Urine Specific Gravity 1.003 (1.010-1.030); Urine Urobilinogen Negative (Negative)
[2018-10-12] MEDS ORDERED: Furosemide IV* 10 MG/ML VIAL (40 MG) IV ONE (11:27)
[2018-10-12] MEDS ORDERED: Albuterol/Ipratropium NEB.SOL* Albuterol 2.5 MG/Ipratropium 0.5 MG 3 ML INH ONE (11:40)
[2018-10-12] MEDS ORDERED: fentaNYL* 50 MCG/ML 2 ML VIAL (100 MCG VIAL) IV SLOW PU ONE (12:09)
[2018-10-12] MEDS ORDERED: diPHENhydraMINE IV* 50 MG/ML 1 ml VIAL (BENADRYL) IV ONE (12:54)
--- NOTE | 2018-10-12 15:53 | CONSULT ---
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 Pt recently underwent R knee injury and was seen by ortho who gave her medrol dose pack and cortisone shot roughly 48 hours ago. After 2nd dose of mderol pt had plerutic chest pain, sensation of throat closing in. She decided to present to Urgent Care, they felt she was high risk and requested she be transported to ER , she was given IV Benadryl and an EpiPen in route She presented to the ED tachycardic, mildly HTN and afebrile. She has numerous allergies probably from her atypical mastocytosis, her main c/o is blt dull back pain and pleuretic chest pain. She has no other new exposures ROS: Neg for FOLEY, fever, chills, malaise, sore throat, N/V/D, abd pain, dysuria, hematuria, rashes lesion, cough, CP, palps. Pos for palps and pleuretic chest pain PMH: Allergies, Asthma, hx of cardiac arrest as child, monitored with frequent echo cardiogram, known goiter and benign adrenal fatty enlargement Surg Hx: Reviewed Fam Hx: Reviewed Social: Lives with her kids, non smoker, non drinker, no illicits Labs: Notable for elevated leukocytosis with monocytes on diff, Elevated BNP, D DIMER <200 Imaging:Unremarkable CXR, CT with atelectasis otherwise normal Review of Systems - Measurements Intake and Output: Intake and Output Last 24 Hours 10/10/18 10/11/18 10/12/18 10/13/18 06:59 06:59 06:59 06:59 Weight 250 lb - Review of Systems General Comments: See HPI Objective Vital Signs - 8 hr 10/12/18 10/12/18 10/12/18 10:16 10:30 10:35 Temperature 98.4 F Pulse Rate 101 99 Respiratory 25 34 25 Rate Blood Pressure 153/102 125/106 (mmHg) O2 Sat by Pulse 100 100 Oximetry 10/12/18 10/12/18 10/12/18 10:40 11:00 11:40 Temperature Pulse Rate 97 82 85 Respiratory 25 32 18 Rate Blood Pressure (mmHg) O2 Sat by Pulse 98 98 100 Oximetry 10/12/18 10/12/1810/12/19 11:45 12:00 12:15 Temperature Pulse Rate 102 79 81 Respiratory 19 26 33 Rate Blood Pressure 168/121 141/93 (mmHg) O2 Sat by Pulse 98 100 100 Oximetry 10/12/18 10/12/18 10/12/18 12:51 12:53 13:00 Temperature Pulse Rate 92 88 Respiratory 16 20 17 Rate Blood Pressure 150/104 (mmHg) O2 Sat by Pulse 97 88 Oximetry 10/12/18 10/12/18 10/12/18 13:19 13:45 14:00 Temperature Pulse Rate 85 80 95 Respiratory 27 12 18 Rate Blood Pressure 130/88 147/95 (mmHg) O2 Sat by Pulse 97 94 95 Oximetry 10/12/18 10/12/18 10/12/18 14:15 14:45 15:00 Temperature Pulse Rate 81 79 80 Respiratory 11 0 7 Rate Blood Pressure 140/93 135/88 (mmHg) O2 Sat by Pulse 91 97 96 Oximetry 10/12/18 15:15 Temperature Pulse Rate 76 Respiratory 23 Rate Blood Pressure 132/86 (mmHg) O2 Sat by Pulse 96 Oximetry Oxygen Devices in Use Now: None Appearance: V pleasant woman, NAD Eyes: No Scleral Icterus, PERRLA Ears/Nose/Mouth/Throat: NL Teeth, Lips, Gums Neck: NL Appearance and Movements; NL JVP Respiratory: Symmetrical Chest Expansion and Respiratory Effort, Clear to Auscultation Cardiovascular: NL Sounds; No Murmurs; No JVD, RRR Abdominal: NL Sounds; No Tenderness; No Distention, No Hepatosplenomegaly Lymphatic: No Cervical Adenopathy Skin: No Rash or Ulcers Neurological: Alert and Oriented x 3 Result Diagrams: 10/12/18 10:34 10/12/18 10:34 Assessment/Plan - Billing 37 F PMH asthma, hx of allergies, 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 BNP has been evaluated by PCP with frequent echo 1) Allergy: -----Recommend Hydroxyzine 25mg up to QID # 30 2) Pleurisy: -----Hydrocodone 5-325 limited supply, Refill Albuterol inhaler, and Incintive Spirometer Patient is safe for d/c
[2018-10-12 17:08] VITALS: BP 125/73
== END 2018-10-12 17:20 | disposition home or self-care (01) ==
LOC: ED 10:14
DX: R06.00 Dyspnea, unspecified (principal); M54.9 Dorsalgia, unspecified; J98.11 Atelectasis; E04.1 Nontoxic single thyroid nodule; M47.894 Other spondylosis, thoracic region; Z87.891 Personal history of nicotine dependence; Z88.5 Allergy status to narcotic agent; Z88.0 Allergy status to penicillin; Z88.2 Allergy status to sulfonamides; Z88.8 Allergy status to other drugs, medicaments and biological substances; Z88.1 Allergy status to other antibiotic agents; Z91.041 Radiographic dye allergy status; Z91.040 Latex allergy status
CPT/HCPCS: 36415; 71046; 71250; 80053; 81003; 82550; 82553; 82803; 83605; 83880; 84484; 84702; 85025; 85379; 85610; 85730; 86140; 93005; 96374; 96375; 99282; A9270-GY; J1200; J1940; J3010

== ENCOUNTER 2019-03-17 09:52 | Day surgery (SDC) | payer OTHER ==
[~2019-03-17 09:52] MED LIST: Buffered Lidocaine 1% SYRIN* 1 ML/SYRINGE INTRADERM ONE; Famotidine IV* 10 MG/ML 2 ML (20 mg) IV ONE; Lactated Ringers 1000 ML Bag* 1,000 ML IV SCH
[2019-03-17] MEDS ORDERED: ceFAZolin 2 GM PREMIX in ORs 0 GM/0 ML BAG ONE (10:04)
[2019-03-17] MEDS ORDERED: Famotidine IV* 10 MG/ML 2 ML (20 mg) ONE (10:04)
[2019-03-17] MEDS ORDERED: Clindamycin 900 MG/D5W BAG(*) 900 MG/50 ML BAG IVPB ONE (12:26)
[2019-03-17] MEDS ORDERED: Propofol* 10 MG/ML 20 ML BTL ONE (12:34)
[2019-03-17] MEDS ORDERED: Lidocaine 2% PF * 5 ML VIAL ONE (12:34)
[2019-03-17] MEDS ORDERED: Ondansetron INJ* 2 MG/ML VIAL ONE (12:34)
[2019-03-17] MEDS ORDERED: fentaNYL* 50 MCG/ML 5 ML VIAL (250 MCG VIAL) ONE (12:34)
[2019-03-17] MEDS ORDERED: EPINEPHRINE 1 MG/ML 1 ML VIAL ONE (12:51)
[2019-03-17] MEDS ORDERED: Bupivacaine 0.5% W/EPI SDV* 30 ML VIAL ONE (12:52)
[2019-03-17] MEDS ORDERED: Ketorolac INJ* 30 MG/ML 1 ML VIAL ONE (13:04)
[2019-03-17] MEDS ORDERED: DiMENhydriNATE IV* 50 MG/ML VIAL IV PUSH PRN (13:26)
[2019-03-17] MEDS ORDERED: oxyCODONE/Acetamin 5/325 MG* TAB PO PRN (13:26)
[2019-03-17] MEDS ORDERED: Ondansetron INJ* 2 MG/ML VIAL IV PRN (13:26)
[2019-03-17] MEDS ORDERED: Naloxone* 0.4 MG/ML 1 ML VIAL IV PRN (13:26)
[2019-03-17] MEDS ORDERED: fentaNYL* 50 MCG/ML 2 ML VIAL (100 MCG VIAL) ONE ×3 (14:32→15:22)
[2019-03-17] MEDS: fentaNYL* 50 MCG/ML 2 ML VIAL (100 MCG VIAL) IV PRN ×4 (15:05→16:24)
[2019-03-17 16:03] VITALS: BP 141/80
--- NOTE | 2019-03-19 03:09 | OP ---
OPERATIVE REPORT: DATE OF OPERATION: 03/17/19 DATE OF : 82 SURGEON: Lex Keller MD DATA MANAGER: KENROY Boland A physician molding line assistant was required for the length of the procedure for assistance with the patient positioning, retraction, instrumentation, and closure. ANESTHESIOLOGIST: Dr. Hopper. ANESTHESIA: General anesthesia, local anesthesia with approximately 20 cc of Marcaine 0.25% with epinephrine. PRE-OP DIAGNOSIS: Right knee lateral meniscus tear. POST-OP DIAGNOSIS: Right knee lateral meniscus tear. OPERATIVE PROCEDURE: Right knee arthroscopic lateral meniscal repair. 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 The patient had much increased signal about the anterior body. One radiologist reading the MRI thought that she might have an anterior root tear. Another radiologist thought that she might have a bucket handle meniscal tear. I was not sure based on my own viewing of the images. It was clear that the patient had abnormal signal change in that anterior horn. 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 Discussed risks and potential complications of surgery with the patient. Discussed the treatment that I would choose intraoperatively ranging from partial lateral meniscectomy to lateral meniscus repair, on-side technique or outside-in technique, or anterior root repair of lateral meniscus. ANTIBIOTICS: Clindamycin 900 mg IV. IV FLUIDS: See Anesthesia note. [id number] TIME: 64 minutes. TOURNIQUET TIME: 69 minutes at 300 mmHg right thigh. SPECIMEN: None. IMPLANTS: FiberWire 2-0 suture, x2 placed by an outside-in technique. ESTIMATED BLOOD LOSS: Minimal. COMPLICATIONS: None. DESCRIPTION OF PROCEDURE: In preoperative holding, the patient signed a written consent. The operative extremity was marked in preoperative holding. The patient was taken back to the operating room and placed supine on operating room table. Sedated and intubated. A blanket bump placed under the right hemipelvis. Tourniquet placed about the right proximal thigh. Right distal thigh placed in the circumferential thigh flores. Table was elevated and foot of the table was dropped. The right lower extremity was prepped and draped. Surgical time-out performed. Esmarch was applied and tourniquet was elevated. I made an anterolateral knee arthroscopy portal using standard technique. I viewed the patellofemoral compartment. No articular cartilage injury there. Moved down to the medial compartment. There was a little bit of laxity visible in the posterior horn of the medial meniscus. I, therefore, made an anteromedial knee arthroscopy portal under direct visualization and probed the medial meniscus. It was fully intact. I next debrided some synovitis about the anterior knee with an arthroscopic shaver. Assessed ACL and PCL and they were intact. I next moved to the lateral meniscus. At first look, the lateral compartment appeared to be a mess. There appeared to be frayed tissue all over the place, tearing at least one location if not multiple. There also appeared to be some grade 1 injury throughout the lateral compartments and some tiny focal areas of grade 2 articular cartilage changes. I probed the lateral meniscus and viewed it from anterolateral and anteromedial portals. There was most prominently, especially easy to visible after I smoothed out frayed tissue, a full-thickness radial tear in the anterior horn of the lateral meniscus. This tear was far, at least a centimeter or 2 from the anterior root, so it was not a root tear. Fortunately, it was not a longitudinal tear and involved the full thickness of the meniscus. The meniscal tissue quality appeared pretty good in the body of the posterior horn, but medial or central to that radial tear appeared to be very frayed. There also appeared to be a slight increase in the laxity of the meniscal tissue lateral to the radial tear. I considered doing a partial lateral meniscectomy given the overall poor quality nature of the appearance of the meniscus. However, given the patient's young age, I thought it made sense to perform a repair. I did give this some strong consideration for a while, however. I next performed an outside-in lateral meniscus repair. Spinal needles placed through the skin, placed suture, a PDS that was exchanged for FiberWire 2-0 with a simple stitch connecting the 2 sides of the radial tear on the anterior horn. This really made a meniscus work much better both opposing the 2 components of meniscal tissue and also anchoring much more nicely the anterior horn, laterally to the capsule. I, before tying this first knot, made a longitudinal incision just between the 2 spinal needles placed and pulled the FiberWire suture into this longitudinal incision, which included the dissection down to capsule. I tied the knot right on the capsule and that affected an excellent reduction. Through this longitudinal incision, I again placed spinal needles and placed a PDS simple stitch, which I converted to a FiberWire 2-0 suture, which I made a stitch with. With 2 stitches, side by side placed, I thought this was an adequate repair. This greatly improved the appearance of the lateral meniscus. I removed instruments and fluid from the knee. Closed skin incisions with figure- of-eight and 12 stitches using nylon 3-0 suture. Xeroform, 4x4s, ABDs, sterile Webril, Román bandage from foot to groin. Prior to placing the dressing, I placed about 20 cc of local anesthesia about the skin incisions. The patient was awakened, extubated, and transferred to the PACU. DISPOSITION: The patient is to be toe-touch weightbearing right lower extremity. She will start physical therapy immediately. I will restrict her to 0 to 60 degrees of flexion for 2 weeks and then 0 to 90 degrees from week 3 to week 6. She will take Percocet as needed for pain control. She will see me in the office 10 to 14 days postoperatively. I spoke with the patient's about the nature of the meniscus tear and quality of the meniscus tissue. Given the radial configuration of the tear and the lesser quality tissue, this repair is not guaranteed to work. If it fails, the patient would undergo a future partial lateral meniscectomy, but I thought, given the patient's young age, it was worth trying to repair this and trying to see if it will heal. [id number] #: [id number] VASU
== END 2019-03-17 16:43 | disposition home or self-care (01) ==
LOC: OR 09:52
PROVIDERS: ATTEND Orthopaedic Surgery
DX: S83.271A Complex tear of lateral meniscus, current injury, right knee, initial encounter (principal); Z87.891 Personal history of nicotine dependence; Z88.8 Allergy status to other drugs, medicaments and biological substances; Z88.1 Allergy status to other antibiotic agents; Z88.0 Allergy status to penicillin; K21.9 Gastro-esophageal reflux disease without esophagitis; J45.909 Unspecified asthma, uncomplicated; I10 Essential (primary) hypertension; K74.60 Unspecified cirrhosis of liver; X50.0XXA Overexertion from strenuous movement or load, initial encounter; Y92.9 Unspecified place or not applicable; Y99.0 Civilian activity done for income or pay
CPT/HCPCS: 81025; J0690; J1885; J2405; J2704; J3010

== ENCOUNTER 2023-07-19 12:32 | Inpatient (IN) ==
[2023-07-19 13:42] LABS: ABS Basophils 0.1 10^3/uL (0.0-0.1); ABS Lymphocytes 1.6 10^3/uL (1.0-4.8); ABS Monocytes 0.9 10^3/uL (0.0-0.9); ABS Neutrophils 8.2 10^3/uL (1.5-7.6); ABS Nucleated RBC 0.01 10^3/ul; Eosinophil % 0.3 %; Hematocrit 41.3 % (35-45); Hemoglobin 14.3 g/dL (11.5-14.3); Mean Corpuscular Hemoglobin 30.6 pg (27-33); Mean Corpuscular Hgb Conc 34.7 g/dL (31-36); Mean Corpuscular Volume 88.1 fL (80-97); Mean Platelet Volume 7.6 fL (7.5-11.2); Nucleated Red Blood Cells % 0.1 %/100WBC (0.0-0.8); Platelet Count 458 10^3/uL (150-450); Red Blood Count 4.69 10^6/uL (3.63-4.92); Red Cell Distribution Width 13.1 % (12-17); White Blood Count 10.8 10^3/uL (3.8-11.8)
[2023-07-19 13:46] LABS: Urine Appearance Turbid; Urine Bilirubin Negative (Negative); Urine Blood Negative (Negative); Urine Color Yellow; Urine Glucose Negative (Negative); Urine Ketones 1+ (Negative); Urine Nitrite Negative (Negative); Urine Protein 1+ (>=30 mg/dL) (Negative); Urine Specific Gravity 1.022 (1.002-1.030); Urine Urobilinogen Negative (Negative)
[2023-07-19 13:52] LABS: Urine Bacteria 3+ /HPF (Absent); Urine Red Blood Cell 1+(3-5/hpf) /HPF (0-Trace); Urine Squamous Epithelial Cell Present /HPF (Absent); Urine White Blood Cell 1+(6-10/hpf) /HPF (0-Trace)
[2023-07-19 14:06] LABS: Urine Benzodiazepine Screen None Detected (None Detect); Urine Cannabinoids Screen Presumptive Positive (None Detect); Urine Opiates Screen None Detected (None Detect)
[2023-07-19 14:17] LABS: ALT 52 U/L (7-52); AST 30 U/L (13-39); Acetaminophen < 15 mcg/mL; Albumin 4.8 g/dL (3.2-5.2); Albumin/Globulin Ratio 1.8 (1-3); Alcohol, S < 13 mg/dL (<13); Alkaline Phosphatase 50 U/L (35-149); Anion Gap 10 mmol/L (2-16); Blood Urea Nitrogen 11 mg/dL (6-24); CO2 Carbon Dioxide 27 mmol/L (22-32); Calcium 10.3 mg/dL (8.6-10.3); Chloride 102 mmol/L (101-111); Creatinine, Serum 0.69 mg/dL (0.51-0.95); Globulin 2.6 g/dL (2-4); Glucose 136 mg/dL (70-100); Potassium 3.9 mmol/L (3.5-5.0); Salicylate < 2.50 mg/dL (<30); Sodium 139 mmol/L (135-145); Total Bilirubin 0.6 mg/dL (0.2-1.0); Total Protein 7.4 g/dL (6.4-8.9); eGFR CKD-EPI 111.7 (>60)
[2023-07-19 14:25] LABS: TSH Ultra Thyroid Stim Horm 0.95 mcIU/mL (0.34-5.60)
[2023-07-19] MEDS ORDERED: OLANZapine 5 mg TAB *ODT PO PRN (19:54)
[2023-07-19] MEDS ORDERED: Nicotine GUM 2MG FRUIT FLAVOR PO PRN (20:00)
[2023-07-19] MEDS: EPINEPHrine Anaphylaxis SYR CERTADOSE SYR KIT ONE (22:32)
[2023-07-19] MEDS: LORazepam 2 mg VIAL 1 ml ONE (22:41)
[2023-07-20] MEDS: Vitamin THERAPEUTIC TAB PO SCH (09:39)
[2023-07-20] MEDS: Nicotine PATCH 21 MG/24 HR PATCH TRANSDERM SCH (09:39)
[2023-07-20] MEDS: Al Hydrox/Mg Hydrox/Simet LIQ 30 ML UDC PO PRN (12:00)
[2023-07-20] MEDS ORDERED: CROMOLYN INTRANASAL PRN (12:11)
[2023-07-20] MEDS: LORazepam 2 mg VIAL 1 ml IM ONE (15:42)
[2023-07-22] MEDS: Polyethylene Glycol 3350 17 GM PACKET PO PRN (18:52)
[2023-07-22] MEDS: EPINEPHrine Anaphylaxis SYR CERTADOSE SYR KIT IM PRN (23:11)
[2023-07-22] MEDS ORDERED: Albuterol 2.5mg/3 ml (0.083%) NEB.SOLN INH PRN (23:12)
[2023-07-22] MEDS: Famotidine IV 10 MG/ML 2 ml VIAL (20 mg) IV SLOW PU ONE (23:51)
[2023-07-23] MEDS ORDERED: Senna TAB 8.6 mg TAB PO PRN (11:11)
[2023-07-27 09:33] VITALS: BP 130/87
== END 2023-07-27 10:29 | disposition home or self-care (01) | DRG 753 ==
LOC: ED 12:32 → EDHOLD 19:32 → BSU 19:53
PROVIDERS: ADMIT Student in an Organized Health Care Education/Training Program; ATTEND Student in an Organized Health Care Education/Training Program